=== PATIENT | female | born 1970 | race Caucasian/White ===

== ENCOUNTER 2016-10-16 16:37 | Inpatient (IN) | payer BC ==
[~2016-10-16] VITALS: Ht 172.7 cm; Wt 100.3 kg
[2016-10-16] MEDS ORDERED: ONDANSETRON PF 4 MG/2 ML VIAL. ONE (17:37)
[2016-10-16] MEDS ORDERED: IV NORMAL SALINE 1000ML BAG 1,000 ML IV SCH ×2 (18:00→20:15)
[2016-10-16] MEDS ORDERED: ONDANSETRON PF 4 MG/2 ML VIAL. IV ONE (18:00)
[2016-10-16] MEDS ORDERED: FENTANYL PF 100 MCG/2 ML VIAL. ONE (18:04)
[2016-10-16] MEDS ORDERED: FENTANYL PF 100 MCG/2 ML VIAL. IV ONE (18:15)
[2016-10-16] MEDS ORDERED: FENTANYL PF 100 MCG/2 ML VIAL. IV PRN ×2 (18:30→20:15)
[2016-10-16 18:31] LABS: BASO % 0 % (0-3); EOS % 0 % (0-3); HEMATOCRIT 44.3 % (36.0-47.0); HEMOGLOBIN 15.2 g/dL (12.0-15.5); LYMPH # 1.3 x10^3/uL (1.0-4.8); LYMPH % 10 % (24-48); MEAN CORPUSCULAR HEMOGLOBIN 32 pg (25-35); MEAN CORPUSCULAR HGB CONC 34 g/dL (31-37); MEAN CORPUSCULAR VOLUME 94 fL (79-100); MONO % 3 % (0-9); NEUT % 86 % (31-73); PLATELET COUNT 230 x10^3/uL (140-400); RED BLOOD COUNT 4.73 x10^6/uL (3.50-5.40); WHITE BLOOD COUNT 12.5 x10^3/uL (4.0-11.0)
[2016-10-16] MEDS ORDERED: HYDROMORPHONE 2 MG/ML VIAL. ONE (18:46)
[2016-10-16] MEDS: HYDROMORPHONE 2 MG/ML VIAL. IV/SQ PRN ×2 (18:48→19:40)
[2016-10-16 19:00] LABS: ALBUMIN 4.2 g/dL (3.4-5.0); ALBUMIN/GLOBULIN RATIO 1.2 (1.0-1.7); CALCIUM 9.9 mg/dL (8.5-10.1); CREATININE 1.1 mg/dL (0.6-1.0); TOTAL BILIRUBIN 0.6 mg/dL (0.2-1.0); TOTAL PROTEIN 7.8 g/dL (6.4-8.2)
[2016-10-16] MEDS ORDERED: PROMETHAZINE 12.5 MG in IV NORMAL SALINE 50ML 50 ML IV ONE (19:00)
[2016-10-16 19:03] LABS: NEG OBC UR NEG; POS OBC UR POS
--- NOTE | 2016-10-16 19:33 | RAD ---
PROCEDURE CT of the abdomen and pelvis without contrast HISTORY TECHNIQUE Noncontrast helical CT scanning of the abdomen and pelvis was performed. Without GI contrast, the sensitivity to detect GI tract pathology is decreased. Without IV contrast, the sensitivity to detect organ pathology is decreased. COMPARISON FINDINGS The liver is homogeneous in appearance on this noncontrast study and is normal in size. The spleen is homogeneous appearance on this noncontrast study and is normal in size. The pancreas is homogeneous appearance on this noncontrast study and is not enlarged. The gallbladder has been removed.. No adrenal masses are seen. No renal stones or hydronephrosis or perinephric fluid collections are seen. No hydroureter is seen. No stones are evident within either ureter or within the lumen of the urinary bladder. The urinary bladder wall is smooth. No focal aneurysmal dilatation of the abdominal aorta is seen. No enlarged abdominal or pelvic lymphadenopathy is seen. No free intraperitoneal fluid or free intraperitoneal air is seen. There is dilated proximal small bowel and collapsed mid and distal small bowel. There is a transition zone seen in the mid abdomen in the coronal sequence image number 17. The lung bases are clear. The appendix is normal. There is an IUD in the uterus which appears well positioned. IMPRESSION High-grade mid small bowel obstruction. There is an exact transition zone seen. PQRS Statement: One or more of the following individualized dose reduction techniques were utilized for this study: 1. Automated exposure control. 2. Adjustment of the mA and/or kV according to patient size. 3. Use of iterative reconstruction technique. Electronically signed by: Gerson Gutierrez MD (Oct 16, 2016 19:31:09)
--- NOTE | 2016-10-16 19:52 | PHYS DOC ---
Past Medical History Past Medical History: Other Additional Past Medical Histor: HEMACHROMTIC, VON WILLEBRAND'S DISEASE Past Surgical History: Cholecystectomy, Tonsillectomy Alcohol Use: None Drug Use: None Adult General Chief Complaint Chief Complaint: ABDOMINAL PAIN HPI HPI Patient is a 45 year old female brought to the ED by family members with abdominal pain, nausea and vomiting. The patient states about 1:30 today she had acute onset of epigastric abdominal pain which worsened for a couple of hours and then she began vomiting. The pain feels "crampy" like a spasm and goes through to her back. She's never had pain like this before. She has vomited multiple times, now she is vomiting up yellow stuff. She has not vomited up blood. She has no history of pancreatitis, no history of bowel obstruction. She did have upper and lower endoscopy a few years ago and was told she had a "acidic stomach". PCP Dr. Cam [facility]. Review of Systems Review of Systems Constitutional: Denies fever or chills [] Eyes: Denies change in visual acuity, redness, or eye pain [] HENT: Denies nasal congestion or sore throat [] Respiratory: Denies cough or shortness of breath [] Cardiovascular: Denies chest pain GI: As in history of present illness : She has a Mirena and does have menstrual periods at times Musculoskeletal: Denies back pain or joint pain [] Integument: Denies rash or skin lesions [] Neurologic: Denies headache, focal weakness or sensory changes [] Current Medications Current Medications Current Medications Medications (Trade) Dose Ordered Sig/Sam Start Time Stop Time Status Last Admin Dose Admin Fentanyl Citrate (Fentanyl 2ml Vial) 100 mcg 1X ONCE 10/16/16 18:15 10/16/16 18:16 DC 10/16/16 18:08 100 MCG Fentanyl Citrate 50 mcg 50 mcg PRN Q15MIN PRN 10/16/16 18:30 10/16/16 20:25 DC 10/16/16 18:26 50 MCG Fentanyl Citrate 100 mcg 100 mcg STK-MED ONCE 10/16/16 18:04 10/16/16 18:05 DC Hydromorphone HCl (Dilaudid) 2 mg STK-MED ONCE 10/16/16 18:46 10/16/16 18:47 DC Ondansetron HCl (Zofran) 4 mg 1X ONCE 10/16/16 18:00 10/16/16 18:01 DC 10/16/16 17:46 4 MG Promethazine HCl/ Sodium Chloride (Phenergan/Iv Sodium Chloride 0.9% 50ml) 50.5 ml @ 101 mls/hr 1X ONCE 10/16/16 19:00 10/16/16 19:29 DC 10/16/16 18:39 101 MLS/HR Sodium Chloride (Iv Sodium Chloride 0.9% 1000ml Bag) 1,000 ml @ 1,000 mls/hr Q1H 10/16/16 18:00 10/16/16 18:59 DC 10/16/16 18:08 1,000 MLS/HR Allergies Allergies Allergies Coded Allergies Type Severity Reaction Last Updated Verified No Known Drug Allergies 10/16/16 No Physical Exam Physical Exam Constitutional: Well developed, well nourished, appears very uncomfortable, holding her upper abdomen, having frequent retching and emesis of yellow stomach contents HENT: Normocephalic, atraumatic, bilateral external ears normal, oropharynx moist, no oral exudates, nose normal. [] Eyes: conjunctiva normal, no discharge. [] Neck: Normal range of motion, no tenderness, supple, no stridor. [] Cardiovascular:Heart rate regular rhythm, no murmur [] Lungs & Thorax: Bilateral breath sounds clear to auscultation [] Abdomen: Nondistended. Bowel sounds are quiet to absent. No bruit. No mass. No pulsatile mass. Lower abdomen is nontender to palpation. Epigastric is tender to palpation without rebound or guarding. Skin: Warm, dry, no erythema, no rash. [] Extremities: No tenderness, no cyanosis, no clubbing, ROM intact, no edema. [] Neurologic: Alert and oriented X 3, normal motor function, normal sensory function, no focal deficits noted. [] Current Patient Data Vital Signs Vital Signs Date Time Temp Pulse Resp B/P Pulse Ox O2 Delivery O2 Flow Rate FiO2 10/16/16 19:40 16 10/16/16 18:48 98 10/16/16 18:28 72 150/68 Room Air 10/16/16 17:09 97.7 97.7 Lab Values Laboratory Tests Test 10/16/16 17:00 10/16/16 17:15 Urine Test Negative (NEG) White Blood Count 12.5x10^3/uL (4.0-11.0) H Red Blood Count 4.73x10^6/uL (3.50-5.40) Hemoglobin 15.2g/dL (12.0-15.5) Hematocrit 44.3% (36.0-47.0) Mean Corpuscular Volume 94fL (79-100) Mean Corpuscular Hemoglobin 32pg (25-35) Mean Corpuscular Hemoglobin Concent 34g/dL (31-37) Red Cell Distribution Width 13.0% (11.5-14.5) Platelet Count 230x10^3/uL (140-400) Neutrophils (%) (Auto) 86% (31-73) H Lymphocytes (%) (Auto) 10% (24-48) L Monocytes (%) (Auto) 3% (0-9) Eosinophils (%) (Auto) 0% (0-3) Basophils (%) (Auto) 0% (0-3) Neutrophils # (Auto) 10.7x10^3uL (1.8-7.7) H Lymphocytes # (Auto) 1.3x10^3/uL (1.0-4.8) Monocytes # (Auto) 0.4x10^3/uL (0.0-1.1) Eosinophils # (Auto) 0.0x10^3/uL (0.0-0.7) Basophils # (Auto) 0.0x10^3/uL (0.0-0.2) Segmented Neutrophils % 84% (35-66) H Lymphocytes % 14% (24-48) L Monocytes % 2% (0-10) Platelet Estimate Adequate (ADEQUATE) Sodium Level 143mmol/L (136-145) Potassium Level 3.0mmol/L (3.5-5.1) L Chloride Level 102mmol/L (98-107) Carbon Dioxide Level 30mmol/L (21-32) Anion Gap 11 (6-14) Blood Urea Nitrogen 16mg/dL (7-20) Creatinine 1.1mg/dL (0.6-1.0) H Estimated GFR (Cockcroft-Gault) 54.0 BUN/Creatinine Ratio 15 (6-20) Glucose Level 112mg/dL (70-99) H Calcium Level 9.9mg/dL (8.5-10.1) Total Bilirubin 0.6mg/dL (0.2-1.0) Aspartate Amino Transferase (AST) 28U/L (15-37) Alanine Aminotransferase (ALT) 36U/L (14-59) Alkaline Phosphatase 91U/L (46-116) Total Protein 7.8g/dL (6.4-8.2) Albumin 4.2g/dL (3.4-5.0) Albumin/Globulin Ratio 1.2 (1.0-1.7) Lipase 159U/L (73-393) Laboratory Tests 10/16/16 17:15 Laboratory Tests 10/16/16 17:15 EKG EKG [] Radiology/Procedures Radiology/Procedures CT scan of the abdomen and pelvis read by the radiologist is positive for a high -grade mid small bowel obstruction with a transition zone seen. [] Course & Med Decision Making Course & Med Decision Making Pertinent Labs and Imaging studies reviewed. (See chart for details) 45-year-old female with acute onset of epigastric abdominal pain and vomiting. Labs unrevealing for cause, CT scan does show a mid small bowel obstruction. The patient has had a cholecystectomy in the past but no other abdominal surgery. It's unclear why she would have a small bowel obstruction. Despite several doses of IV pain and nausea medication the patient continued to have quite a bit of abdominal pain and frequent retching of small amounts of yellow stomach contents. I discussed with her placement of an NG tube for treatment as well as symptomatic relief. I discussed the case with Dr. Sidhu, [facility], who will admit the patient. I wrote bridge orders. Discussed the case with , general surgery, who will see the patient. [] Dragon Disclaimer Dragon Disclaimer This electronic medical record was generated, in whole or in part, using a voice recognition dictation system. Departure Departure Impression: Primary Impression: Small bowel obstruction Disposition: 09 ADMITTED INPATIENT Admitting Physician: Perri Sidhu Condition: STABLE Referrals: KAY VICTORIA (PCP) KOKI ARIZMENDI MD Oct 16, 2016 19:52
[2016-10-16] MEDS ORDERED: BENZOCAINE ONE 20% MUCOSAL SPRAY. MM (20:00)
[2016-10-16] MEDS ORDERED: PROMETHAZINE 12.5 MG in IV NORMAL SALINE 50ML 50 ML IV PRN (20:15)
[2016-10-16] MEDS ORDERED: ACETAMINOPHEN 325 MG TABLET. PO PRN (20:15)
--- NOTE | 2016-10-16 20:22 | PDOC1 ---
History and Physical Date of Admission Date of Admission 10/16/16 Identification/Chief Complaint Chief Complaint abd pain Problems: Source Source: Chart review, Patient History of Present Illness History of Present Illness HPI HPI Patient is a 45 year old female brought to the ED by family members with abdominal pain, nausea and vomiting. Pt has had similar abd pain before, not as severe as this one. She started to have severe upper abd pain today, about 1pm, constent, with N/V, the pain feels like crampy, radiating to the back. T now she is vomiting up yellow stuff, not blood. never had SBO. She did have upper and lower endoscopy a few years ago and was told she had a "acidic stomach". Has IBS, Usually has constipation. last BM was last night. no flatus since the abd pain. no fever, + chills. no cough, sob. CT SHOWED HIGH LEVEL SBO. HAD CHOlecystectomy before. PCP Dr. Cam [facility]. Past Medical History Past Medical History ibs Past Surgical History Past Surgical History: Cholecystectomy Social History Smoke: No ALCOHOL: social Drugs: None Current Problem List Problem List Problems Medical Problems: (1) Small bowel obstruction Status: Acute Current Medications Current Medications Current Medications Medications (Trade) Dose Ordered Sig/Sam Start Time Stop Time Status Last Admin Dose Admin Acetaminophen (Tylenol) 650 mg PRN Q6HRS PRN 10/16/16 20:15 UNV Benzocaine (Hurricaine One) 1 spray 1X ONCE 10/16/16 20:00 10/16/16 20:01 DC 10/16/16 20:11 1 SPRAY Fentanyl Citrate (Fentanyl 2ml Vial) 100 mcg STK-MED ONCE 10/16/16 18:04 10/16/16 18:05 DC Fentanyl Citrate 50 mcg 50 mcg PRN Q1HR PRN 10/16/16 20:15 10/17/16 20:14 UNV Heparin Sodium (Porcine) 5,000 unit Q8HRS 10/16/16 22:00 UNV Hydromorphone HCl (Dilaudid) 2 mg STK-MED ONCE 10/16/16 18:46 10/16/16 18:47 DC Morphine Sulfate 2 mg PRN Q1HR PRN 10/16/16 20:15 UNV Ondansetron HCl (Zofran) 4 mg PRN Q6HRS PRN 10/16/16 20:15 UNV Ondansetron HCl 4 mg 4 mg 1X ONCE 10/16/16 18:00 10/16/16 18:01 DC 10/16/16 17:46 4 MG Promethazine HCl/ Sodium Chloride (Phenergan/Iv Sodium Chloride 0.9% 50ml) 50.5 ml @ 151.5 mls/ hr PRN Q6HRS PRN 10/16/16 20:15 UNV Sodium Chloride 1,000 ml @ 100 mls/hr Q10H 10/16/16 20:15 10/17/16 20:14 UNV Sodium Chloride (Iv Sodium Chloride 0.9% 1000ml Bag) 1,000 ml @ 1,000 mls/hr Q1H 10/16/16 18:00 10/16/16 18:59 DC 10/16/16 18:08 1,000 MLS/HR Allergies Allergies Allergies Coded Allergies Type Severity Reaction Last Updated Verified No Known Drug Allergies 10/16/16 No ROS Review of System CONSTITUTIONAL: No fever or chills EYES: No recent changes SKIN: No rash or itching CARDIOVASCULAR: No chest pain, syncope, palpitations, or edema RESPIRATORY: No SOB or cough GASTROINTESTINAL: No nausea, vomiting or abdominal pain NEUROLOGICAL: No headaches or weakness ENDOCRINE: No cold or heat intolerance GENITOURINARY: No urgency or frequency of urination MUSCULOSKELETAL: No back pain or joint pain LYMPHATICS: No enlarged lymph nodes PSYCHIATRIC: No anxiety or depression Physical Exam Physical Exam GEN.: No apparent distress. Alert and oriented. HEENT: Head is normocephalic, atraumatic NECK: Supple. LUNGS: Clear to auscultation. HEART: RRR, S1, S2 present. Peripheral pulses intact ABDOMEN: Soft,decreased bowel sounds. whole abd tender, especially epigastric area. EXTREMITIES: Without any cyanosis. left ankle chronic mild edema NEUROLOGIC: Normal speech, normal tone PSYCHIATRIC: Normal affect, normal mood. SKIN: No ulcerations Vitals Vitals Vital Signs Date Time Temp Pulse Resp B/P Pulse Ox O2 Delivery O2 Flow Rate FiO2 10/16/16 19:40 16 10/16/16 18:48 98 10/16/16 18:28 72 150/68 Room Air 10/16/16 17:09 97.7 97.7 Labs Labs Laboratory Tests Test 10/16/16 17:00 10/16/16 17:15 Urine Test Negative (NEG) White Blood Count 12.5x10^3/uL (4.0-11.0) Red Blood Count 4.73x10^6/uL (3.50-5.40) Hemoglobin 15.2g/dL (12.0-15.5) Hematocrit 44.3% (36.0-47.0) Mean Corpuscular Volume 94fL (79-100) Mean Corpuscular Hemoglobin 32pg (25-35) Mean Corpuscular Hemoglobin Concent 34g/dL (31-37) Red Cell Distribution Width 13.0% (11.5-14.5) Platelet Count 230x10^3/uL (140-400) Neutrophils (%) (Auto) 86% (31-73) Lymphocytes (%) (Auto) 10% (24-48) Monocytes (%) (Auto) 3% (0-9) Eosinophils (%) (Auto) 0% (0-3) Basophils (%) (Auto) 0% (0-3) Neutrophils # (Auto) 10.7x10^3uL (1.8-7.7) Lymphocytes # (Auto) 1.3x10^3/uL (1.0-4.8) Monocytes # (Auto) 0.4x10^3/uL (0.0-1.1) Eosinophils # (Auto) 0.0x10^3/uL (0.0-0.7) Basophils # (Auto) 0.0x10^3/uL (0.0-0.2) Sodium Level 143mmol/L (136-145) Potassium Level 3.0mmol/L (3.5-5.1) Chloride Level 102mmol/L (98-107) Carbon Dioxide Level 30mmol/L (21-32) Anion Gap 11 (6-14) Blood Urea Nitrogen 16mg/dL (7-20) Creatinine 1.1mg/dL (0.6-1.0) Estimated GFR (Cockcroft-Gault) 54.0 BUN/Creatinine Ratio 15 (6-20) Glucose Level 112mg/dL (70-99) Calcium Level 9.9mg/dL (8.5-10.1) Total Bilirubin 0.6mg/dL (0.2-1.0) Aspartate Amino Transf (AST/SGOT) 28U/L (15-37) Alanine Aminotransferase (ALT/SGPT) 36U/L (14-59) Alkaline Phosphatase 91U/L (46-116) Total Protein 7.8g/dL (6.4-8.2) Albumin 4.2g/dL (3.4-5.0) Albumin/Globulin Ratio 1.2 (1.0-1.7) Lipase 159U/L (73-393) Laboratory Tests Test 10/16/16 17:00 10/16/16 17:15 Urine Test Negative (NEG) White Blood Count 12.5x10^3/uL (4.0-11.0) Red Blood Count 4.73x10^6/uL (3.50-5.40) Hemoglobin 15.2g/dL (12.0-15.5) Hematocrit 44.3% (36.0-47.0) Mean Corpuscular Volume 94fL (79-100) Mean Corpuscular Hemoglobin 32pg (25-35) Mean Corpuscular Hemoglobin Concent 34g/dL (31-37) Red Cell Distribution Width 13.0% (11.5-14.5) Platelet Count 230x10^3/uL (140-400) Neutrophils (%) (Auto) 86% (31-73) Lymphocytes (%) (Auto) 10% (24-48) Monocytes (%) (Auto) 3% (0-9) Eosinophils (%) (Auto) 0% (0-3) Basophils (%) (Auto) 0% (0-3) Neutrophils # (Auto) 10.7x10^3uL (1.8-7.7) Lymphocytes # (Auto) 1.3x10^3/uL (1.0-4.8) Monocytes # (Auto) 0.4x10^3/uL (0.0-1.1) Eosinophils # (Auto) 0.0x10^3/uL (0.0-0.7) Basophils # (Auto) 0.0x10^3/uL (0.0-0.2) Sodium Level 143mmol/L (136-145) Potassium Level 3.0mmol/L (3.5-5.1) Chloride Level 102mmol/L (98-107) Carbon Dioxide Level 30mmol/L (21-32) Anion Gap 11 (6-14) Blood Urea Nitrogen 16mg/dL (7-20) Creatinine 1.1mg/dL (0.6-1.0) Estimated GFR (Cockcroft-Gault) 54.0 BUN/Creatinine Ratio 15 (6-20) Glucose Level 112mg/dL (70-99) Calcium Level 9.9mg/dL (8.5-10.1) Total Bilirubin 0.6mg/dL (0.2-1.0) Aspartate Amino Transf (AST/SGOT) 28U/L (15-37) Alanine Aminotransferase (ALT/SGPT) 36U/L (14-59) Alkaline Phosphatase 91U/L (46-116) Total Protein 7.8g/dL (6.4-8.2) Albumin 4.2g/dL (3.4-5.0) Albumin/Globulin Ratio 1.2 (1.0-1.7) Lipase 159U/L (73-393) VTE Prophylaxis Ordered VTE Prophylaxis Devices: Yes VTE Pharmacological Prophylaxi: Yes Assessment/Plan Assessment/Plan 1. abd pain with SBO 2. h/o von willebrands dz 3. left ankle chronic mild edema 4. hypokalemia 5. SIRS WO INfection plan: 1 sx consult, NGT now 2. axr tmr 3. npo ivf replete K labs tmr dvt ,gi ppx JERRY MORFIN MD Oct 16, 2016 20:22
--- NOTE | 2016-10-16 20:28 | ACF ---
Admit Criteria Forms Admit Criteria Forms Admit Criteria Forms INTESTINAL OBSTRUCTION Clinical Indications for Admission to Inpatient Care (Place 'X' for any and all applicable criteria): Admission is indicated for ANY ONE of the following (1)(2)(3)(4)(5): [ ]I. Partial bowel obstruction [X]II. Complete bowel obstruction Extended stay beyond goal length of stay may be needed for(1)(4)(12(: [ ]a) Identified etiology (eg, hernia, volvulus, cancer with obstruction) requiring intervention [ ]b) Gallstone ileus [ ]c) Surgical intervention [ ]d) Acute comorbid illness (eg, electrolyte imbalance, hypovolemia, renal failure) The original [employer] content created by [employer] has been revised. The portions of the content which have been revised are identified through the use of italic text or in bold, and [facility] has neither reviewed nor approved the modified material. All other unmodified content is copyright [employer]. Please see references footnoted in the original [employer] edition 2016 CITLALI BLAKE Oct 16, 2016 20:28
[2016-10-16 20:31] LABS: PLT ESTIMATE ADEQUATE (ADEQUATE)
[2016-10-16] MEDS: HYDROMORPHONE 2 MG/ML VIAL. IV PRN (21:14)
[2016-10-16 22:00] VITALS: BP 125/76
[2016-10-16] MEDS: PANTOPRAZOLE IV PUSH 40 MG VIAL. IVP SCH (22:57)
[2016-10-16] MEDS: POTASSIUM CHLORIDE 10MEQ 100 ML IV SCH (23:01)
[2016-10-16] MEDS: POTASSIUM CL 20MEQ D5-0.9%NACL 1,000 ML IV SCH (23:01)
[2016-10-16] MEDS: HEPARIN PF for SUB-Q USE 5,000 UNIT/0.5 ML VIAL. SQ SCH (23:05)
[2016-10-16] MEDS: MORPHINE SULFATE 2 MG/ML DISP.SYRIN. IV PRN (23:12)
[2016-10-16] MEDS: ONDANSETRON PF 4 MG/2 ML VIAL. IV PRN (23:57)
[2016-10-17] MEDS: HYDROMORPHONE 2 MG/ML VIAL. IV PRN ×4 (01:14→16:57)
[2016-10-17] MEDS: POTASSIUM CHLORIDE 10MEQ 100 ML IV SCH ×5 (01:17→13:45)
[2016-10-17 03:59] VITALS: BP 130/80
[2016-10-17] MEDS: MORPHINE SULFATE 2 MG/ML DISP.SYRIN. IV PRN ×3 (05:22→21:07)
[2016-10-17] MEDS: HEPARIN PF for SUB-Q USE 5,000 UNIT/0.5 ML VIAL. SQ SCH (05:58)
[2016-10-17 07:00] VITALS: BP 134/84
--- NOTE | 2016-10-17 07:22 | PDOC ---
SURGICAL PROGRESS NOTE Subjective 45 yo F with epigastric pain abd mild TTP epigastric CT c/w SBO KUB-mild dialation in epigastric pt currently feels somewhat better I/R SBO will try SBFT d/w pt and pt's fiance Thanks for consult! [id number] Vital Signs Vital Signs Date Time Temp Pulse Resp B/P Pulse Ox O2 Delivery O2 Flow Rate FiO2 10/17/16 05:52 20 Room Air 10/17/16 05:22 92 10/17/16 03:59 97.4 65 130/80 97.4 I&O Intake and Output 10/17/16 07:00 Intake Total 0 ml Balance 0 ml Intake Oral 0 ml # Voids 1 Labs Laboratory Tests Test 10/16/16 17:00 10/16/16 17:15 Urine Test Negative (NEG) White Blood Count 12.5x10^3/uL (4.0-11.0) Red Blood Count 4.73x10^6/uL (3.50-5.40) Hemoglobin 15.2g/dL (12.0-15.5) Hematocrit 44.3% (36.0-47.0) Mean Corpuscular Volume 94fL (79-100) Mean Corpuscular Hemoglobin 32pg (25-35) Mean Corpuscular Hemoglobin Concent 34g/dL (31-37) Red Cell Distribution Width 13.0% (11.5-14.5) Platelet Count 230x10^3/uL (140-400) Neutrophils (%) (Auto) 86% (31-73) Lymphocytes (%) (Auto) 10% (24-48) Monocytes (%) (Auto) 3% (0-9) Eosinophils (%) (Auto) 0% (0-3) Basophils (%) (Auto) 0% (0-3) Neutrophils # (Auto) 10.7x10^3uL (1.8-7.7) Lymphocytes # (Auto) 1.3x10^3/uL (1.0-4.8) Monocytes # (Auto) 0.4x10^3/uL (0.0-1.1) Eosinophils # (Auto) 0.0x10^3/uL (0.0-0.7) Basophils # (Auto) 0.0x10^3/uL (0.0-0.2) Segmented Neutrophils % 84% (35-66) Lymphocytes % 14% (24-48) Monocytes % 2% (0-10) Platelet Estimate Adequate (ADEQUATE) Sodium Level 143mmol/L (136-145) Potassium Level 3.0mmol/L (3.5-5.1) Chloride Level 102mmol/L (98-107) Carbon Dioxide Level 30mmol/L (21-32) Anion Gap 11 (6-14) Blood Urea Nitrogen 16mg/dL (7-20) Creatinine 1.1mg/dL (0.6-1.0) Estimated GFR (Cockcroft-Gault) 54.0 BUN/Creatinine Ratio 15 (6-20) Glucose Level 112mg/dL (70-99) Calcium Level 9.9mg/dL (8.5-10.1) Total Bilirubin 0.6mg/dL (0.2-1.0) Aspartate Amino Transf (AST/SGOT) 28U/L (15-37) Alanine Aminotransferase (ALT/SGPT) 36U/L (14-59) Alkaline Phosphatase 91U/L (46-116) Total Protein 7.8g/dL (6.4-8.2) Albumin 4.2g/dL (3.4-5.0) Albumin/Globulin Ratio 1.2 (1.0-1.7) Lipase 159U/L (73-393) Laboratory Tests Test 10/16/16 17:00 10/16/16 17:15 Urine Test Negative (NEG) White Blood Count 12.5x10^3/uL (4.0-11.0) Red Blood Count 4.73x10^6/uL (3.50-5.40) Hemoglobin 15.2g/dL (12.0-15.5) Hematocrit 44.3% (36.0-47.0) Mean Corpuscular Volume 94fL (79-100) Mean Corpuscular Hemoglobin 32pg (25-35) Mean Corpuscular Hemoglobin Concent 34g/dL (31-37) Red Cell Distribution Width 13.0% (11.5-14.5) Platelet Count 230x10^3/uL (140-400) Neutrophils (%) (Auto) 86% (31-73) Lymphocytes (%) (Auto) 10% (24-48) Monocytes (%) (Auto) 3% (0-9) Eosinophils (%) (Auto) 0% (0-3) Basophils (%) (Auto) 0% (0-3) Neutrophils # (Auto) 10.7x10^3uL (1.8-7.7) Lymphocytes # (Auto) 1.3x10^3/uL (1.0-4.8) Monocytes # (Auto) 0.4x10^3/uL (0.0-1.1) Eosinophils # (Auto) 0.0x10^3/uL (0.0-0.7) Basophils # (Auto) 0.0x10^3/uL (0.0-0.2) Segmented Neutrophils % 84% (35-66) Lymphocytes % 14% (24-48) Monocytes % 2% (0-10) Platelet Estimate Adequate (ADEQUATE) Sodium Level 143mmol/L (136-145) Potassium Level 3.0mmol/L (3.5-5.1) Chloride Level 102mmol/L (98-107) Carbon Dioxide Level 30mmol/L (21-32) Anion Gap 11 (6-14) Blood Urea Nitrogen 16mg/dL (7-20) Creatinine 1.1mg/dL (0.6-1.0) Estimated GFR (Cockcroft-Gault) 54.0 BUN/Creatinine Ratio 15 (6-20) Glucose Level 112mg/dL (70-99) Calcium Level 9.9mg/dL (8.5-10.1) Total Bilirubin 0.6mg/dL (0.2-1.0) Aspartate Amino Transf (AST/SGOT) 28U/L (15-37) Alanine Aminotransferase (ALT/SGPT) 36U/L (14-59) Alkaline Phosphatase 91U/L (46-116) Total Protein 7.8g/dL (6.4-8.2) Albumin 4.2g/dL (3.4-5.0) Albumin/Globulin Ratio 1.2 (1.0-1.7) Lipase 159U/L (73-393) Problem List Problems Medical Problems: (1) Small bowel obstruction Status: Acute Problems: MERON HWANG MD Oct 17, 2016 07:22
[2016-10-17] MEDS: PANTOPRAZOLE IV PUSH 40 MG VIAL. IVP SCH (09:00)
[2016-10-17] MEDS: POTASSIUM CL 20MEQ D5-0.9%NACL 1,000 ML IV SCH ×2 (09:01→21:07)
[2016-10-17 09:37] LABS: BASO # 0.1 x10^3/uL (0.0-0.2); BASO % 1 % (0-3); EOS % 0 % (0-3); HEMATOCRIT 41.5 % (36.0-47.0); HEMOGLOBIN 14.2 g/dL (12.0-15.5); LYMPH # 0.9 x10^3/uL (1.0-4.8); LYMPH % 7 % (24-48); MEAN CORPUSCULAR HEMOGLOBIN 32 pg (25-35); MEAN CORPUSCULAR HGB CONC 34 g/dL (31-37); MEAN CORPUSCULAR VOLUME 93 fL (79-100); MONO % 2 % (0-9); NEUT % 91 % (31-73); PLATELET COUNT 226 x10^3/uL (140-400); RED BLOOD COUNT 4.48 x10^6/uL (3.50-5.40); WHITE BLOOD COUNT 13.2 x10^3/uL (4.0-11.0)
[2016-10-17 09:47] LABS: CALCIUM 8.9 mg/dL (8.5-10.1); CREATININE 0.9 mg/dL (0.6-1.0); POTASSIUM 3.2 mmol/L (3.5-5.1)
[2016-10-17] MEDS ORDERED: IOHEXOL 350 MG/ML 100ML VIAL. PO ONE (10:30)
[2016-10-17] MEDS ORDERED: POTASSIUM CHLORIDE 20MEQ 50 ML IV ONE (10:45)
--- NOTE | 2016-10-17 11:29 | RAD ---
EXAM: Two view abdomen with one view chest HISTORY: Small bowel obstruction. COMPARISON: None. FINDINGS: A frontal view of the chest and supine/upright views of the abdomen are obtained. A nasogastric tube has its tip within the distal stomach. Cholecystectomy clips are noted. An intrauterine device is noted. There are no confluent infiltrates. There is no pneumothorax or pleural effusion. The heart is not enlarged. There is no pneumoperitoneum. There are no distended small bowel loops or significant air-fluid levels. There is gas distally. There is a mild S-shaped thoracolumbar scoliosis. IMPRESSION: 1. No confluent infiltrates. 2. No evidence of obstruction.
[2016-10-17] MEDS: ONDANSETRON PF 4 MG/2 ML VIAL. IV PRN (11:39)
--- NOTE | 2016-10-17 12:00 | RAD ---
EXAM: Water-soluble small bowel follow-through. HISTORY: Small bowel obstruction. COMPARISON: 10/17/2016. FINDINGS: Water-soluble contrast was administered through the nasogastric tube and followed in its course through the small bowel and proximal colon with plain radiographs. No fluoroscopic images were obtained. Transit time is normal at less than sign 30 minutes. There are no clearly distended small bowel loops or transition point currently. An intrauterine device is noted. IMPRESSION: 1. No obstruction currently.
--- NOTE | 2016-10-17 13:43 | PDOC ---
PROGRESS NOTES Chief Complaint Chief Complaint 1. abd pain with SBO 2. h/o von willebrands dz 3. left ankle chronic mild edema 4. hypokalemia 5. SIRS WO INfection plan: 1 sx consult, NGT now 2. axr and small bowl series done today, no sbo 3. npo for now given no flatus, and abd pain ivf replete K labs tmr dvt ,gi ppx dc heparin for dvt ppx given 2 History of Present Illness History of Present Illness about 200cc green liquid from NGT, no flatus, or BM pain better with many times of opoids Vitals Vitals Vital Signs Date Time Temp Pulse Resp B/P Pulse Ox O2 Delivery O2 Flow Rate FiO2 10/17/16 12:16 Room Air 10/17/16 07:00 97.8 83 18 134/84 97 97.8 Physical Exam General: Alert, Oriented X3, Cooperative Heart: Regular rate, Normal S1, Normal S2 Lungs: Clear, Wheezing Abdomen: Soft, Other (decreased bs, + tenderness) Extremities: No clubbing, No cyanosis Labs LABS Laboratory Tests Test 10/16/16 17:00 10/16/16 17:15 10/17/16 09:25 Urine Test Negative (NEG) White Blood Count 12.5x10^3/uL (4.0-11.0) 13.2x10^3/uL (4.0-11.0) Red Blood Count 4.73x10^6/uL (3.50-5.40) 4.48x10^6/uL (3.50-5.40) Hemoglobin 15.2g/dL (12.0-15.5) 14.2g/dL (12.0-15.5) Hematocrit 44.3% (36.0-47.0) 41.5% (36.0-47.0) Mean Corpuscular Volume 94fL (79-100) 93fL (79-100) Mean Corpuscular Hemoglobin 32pg (25-35) 32pg (25-35) Mean Corpuscular Hemoglobin Concent 34g/dL (31-37) 34g/dL (31-37) Red Cell Distribution Width 13.0% (11.5-14.5) 13.0% (11.5-14.5) Platelet Count 230x10^3/uL (140-400) 226x10^3/uL (140-400) Neutrophils (%) (Auto) 86% (31-73) 91% (31-73) Lymphocytes (%) (Auto) 10% (24-48) 7% (24-48) Monocytes (%) (Auto) 3% (0-9) 2% (0-9) Eosinophils (%) (Auto) 0% (0-3) 0% (0-3) Basophils (%) (Auto) 0% (0-3) 1% (0-3) Neutrophils # (Auto) 10.7x10^3uL (1.8-7.7) 12.0x10^3uL (1.8-7.7) Lymphocytes # (Auto) 1.3x10^3/uL (1.0-4.8) 0.9x10^3/uL (1.0-4.8) Monocytes # (Auto) 0.4x10^3/uL (0.0-1.1) 0.3x10^3/uL (0.0-1.1) Eosinophils # (Auto) 0.0x10^3/uL (0.0-0.7) 0.0x10^3/uL (0.0-0.7) Basophils # (Auto) 0.0x10^3/uL (0.0-0.2) 0.1x10^3/uL (0.0-0.2) Segmented Neutrophils % 84% (35-66) Lymphocytes % 14% (24-48) Monocytes % 2% (0-10) Platelet Estimate Adequate (ADEQUATE) Sodium Level 143mmol/L (136-145) 142mmol/L (136-145) Potassium Level 3.0mmol/L (3.5-5.1) 3.2mmol/L (3.5-5.1) Chloride Level 102mmol/L (98-107) 102mmol/L (98-107) Carbon Dioxide Level 30mmol/L (21-32) 30mmol/L (21-32) Anion Gap 11 (6-14) 10 (6-14) Blood Urea Nitrogen 16mg/dL (7-20) 14mg/dL (7-20) Creatinine 1.1mg/dL (0.6-1.0) 0.9mg/dL (0.6-1.0) Estimated GFR (Cockcroft-Gault) 54.0 68.0 BUN/Creatinine Ratio 15 (6-20) Glucose Level 112mg/dL (70-99) 116mg/dL (70-99) Calcium Level 9.9mg/dL (8.5-10.1) 8.9mg/dL (8.5-10.1) Total Bilirubin 0.6mg/dL (0.2-1.0) Aspartate Amino Transf (AST/SGOT) 28U/L (15-37) Alanine Aminotransferase (ALT/SGPT) 36U/L (14-59) Alkaline Phosphatase 91U/L (46-116) Total Protein 7.8g/dL (6.4-8.2) Albumin 4.2g/dL (3.4-5.0) Albumin/Globulin Ratio 1.2 (1.0-1.7) Lipase 159U/L (73-393) Magnesium Level 2.0mg/dL (1.8-2.4) Review of Systems Review of Systems no fever, chills, sob or chest pain Assessment and Plan Assessmemt and Plan Problems Medical Problems: (1) Small bowel obstruction Status: Acute Problems: Comment Review of Relevant I have reviewed the following items chris (where applicable) has been applied. Labs Laboratory Tests Test 10/16/16 17:00 10/16/16 17:15 10/17/16 09:25 Urine Test Negative (NEG) White Blood Count 12.5x10^3/uL (4.0-11.0) 13.2x10^3/uL (4.0-11.0) Red Blood Count 4.73x10^6/uL (3.50-5.40) 4.48x10^6/uL (3.50-5.40) Hemoglobin 15.2g/dL (12.0-15.5) 14.2g/dL (12.0-15.5) Hematocrit 44.3% (36.0-47.0) 41.5% (36.0-47.0) Mean Corpuscular Volume 94fL (79-100) 93fL (79-100) Mean Corpuscular Hemoglobin 32pg (25-35) 32pg (25-35) Mean Corpuscular Hemoglobin Concent 34g/dL (31-37) 34g/dL (31-37) Red Cell Distribution Width 13.0% (11.5-14.5) 13.0% (11.5-14.5) Platelet Count 230x10^3/uL (140-400) 226x10^3/uL (140-400) Neutrophils (%) (Auto) 86% (31-73) 91% (31-73) Lymphocytes (%) (Auto) 10% (24-48) 7% (24-48) Monocytes (%) (Auto) 3% (0-9) 2% (0-9) Eosinophils (%) (Auto) 0% (0-3) 0% (0-3) Basophils (%) (Auto) 0% (0-3) 1% (0-3) Neutrophils # (Auto) 10.7x10^3uL (1.8-7.7) 12.0x10^3uL (1.8-7.7) Lymphocytes # (Auto) 1.3x10^3/uL (1.0-4.8) 0.9x10^3/uL (1.0-4.8) Monocytes # (Auto) 0.4x10^3/uL (0.0-1.1) 0.3x10^3/uL (0.0-1.1) Eosinophils # (Auto) 0.0x10^3/uL (0.0-0.7) 0.0x10^3/uL (0.0-0.7) Basophils # (Auto) 0.0x10^3/uL (0.0-0.2) 0.1x10^3/uL (0.0-0.2) Segmented Neutrophils % 84% (35-66) Lymphocytes % 14% (24-48) Monocytes % 2% (0-10) Platelet Estimate Adequate (ADEQUATE) Sodium Level 143mmol/L (136-145) 142mmol/L (136-145) Potassium Level 3.0mmol/L (3.5-5.1) 3.2mmol/L (3.5-5.1) Chloride Level 102mmol/L (98-107) 102mmol/L (98-107) Carbon Dioxide Level 30mmol/L (21-32) 30mmol/L (21-32) Anion Gap 11 (6-14) 10 (6-14) Blood Urea Nitrogen 16mg/dL (7-20) 14mg/dL (7-20) Creatinine 1.1mg/dL (0.6-1.0) 0.9mg/dL (0.6-1.0) Estimated GFR (Cockcroft-Gault) 54.0 68.0 BUN/Creatinine Ratio 15 (6-20) Glucose Level 112mg/dL (70-99) 116mg/dL (70-99) Calcium Level 9.9mg/dL (8.5-10.1) 8.9mg/dL (8.5-10.1) Total Bilirubin 0.6mg/dL (0.2-1.0) Aspartate Amino Transf (AST/SGOT) 28U/L (15-37) Alanine Aminotransferase (ALT/SGPT) 36U/L (14-59) Alkaline Phosphatase 91U/L (46-116) Total Protein 7.8g/dL (6.4-8.2) Albumin 4.2g/dL (3.4-5.0) Albumin/Globulin Ratio 1.2 (1.0-1.7) Lipase 159U/L (73-393) Magnesium Level 2.0mg/dL (1.8-2.4) Laboratory Tests Test 10/16/16 17:00 10/16/16 17:15 10/17/16 09:25 Urine Test Negative (NEG) White Blood Count 12.5x10^3/uL (4.0-11.0) 13.2x10^3/uL (4.0-11.0) Red Blood Count 4.73x10^6/uL (3.50-5.40) 4.48x10^6/uL (3.50-5.40) Hemoglobin 15.2g/dL (12.0-15.5) 14.2g/dL (12.0-15.5) Hematocrit 44.3% (36.0-47.0) 41.5% (36.0-47.0) Mean Corpuscular Volume 94fL (79-100) 93fL (79-100) Mean Corpuscular Hemoglobin 32pg (25-35) 32pg (25-35) Mean Corpuscular Hemoglobin Concent 34g/dL (31-37) 34g/dL (31-37) Red Cell Distribution Width 13.0% (11.5-14.5) 13.0% (11.5-14.5) Platelet Count 230x10^3/uL (140-400) 226x10^3/uL (140-400) Neutrophils (%) (Auto) 86% (31-73) 91% (31-73) Lymphocytes (%) (Auto) 10% (24-48) 7% (24-48) Monocytes (%) (Auto) 3% (0-9) 2% (0-9) Eosinophils (%) (Auto) 0% (0-3) 0% (0-3) Basophils (%) (Auto) 0% (0-3) 1% (0-3) Neutrophils # (Auto) 10.7x10^3uL (1.8-7.7) 12.0x10^3uL (1.8-7.7) Lymphocytes # (Auto) 1.3x10^3/uL (1.0-4.8) 0.9x10^3/uL (1.0-4.8) Monocytes # (Auto) 0.4x10^3/uL (0.0-1.1) 0.3x10^3/uL (0.0-1.1) Eosinophils # (Auto) 0.0x10^3/uL (0.0-0.7) 0.0x10^3/uL (0.0-0.7) Basophils # (Auto) 0.0x10^3/uL (0.0-0.2) 0.1x10^3/uL (0.0-0.2) Segmented Neutrophils % 84% (35-66) Lymphocytes % 14% (24-48) Monocytes % 2% (0-10) Platelet Estimate Adequate (ADEQUATE) Sodium Level 143mmol/L (136-145) 142mmol/L (136-145) Potassium Level 3.0mmol/L (3.5-5.1) 3.2mmol/L (3.5-5.1) Chloride Level 102mmol/L (98-107) 102mmol/L (98-107) Carbon Dioxide Level 30mmol/L (21-32) 30mmol/L (21-32) Anion Gap 11 (6-14) 10 (6-14) Blood Urea Nitrogen 16mg/dL (7-20) 14mg/dL (7-20) Creatinine 1.1mg/dL (0.6-1.0) 0.9mg/dL (0.6-1.0) Estimated GFR (Cockcroft-Gault) 54.0 68.0 BUN/Creatinine Ratio 15 (6-20) Glucose Level 112mg/dL (70-99) 116mg/dL (70-99) Calcium Level 9.9mg/dL (8.5-10.1) 8.9mg/dL (8.5-10.1) Total Bilirubin 0.6mg/dL (0.2-1.0) Aspartate Amino Transf (AST/SGOT) 28U/L (15-37) Alanine Aminotransferase (ALT/SGPT) 36U/L (14-59) Alkaline Phosphatase 91U/L (46-116) Total Protein 7.8g/dL (6.4-8.2) Albumin 4.2g/dL (3.4-5.0) Albumin/Globulin Ratio 1.2 (1.0-1.7) Lipase 159U/L (73-393) Magnesium Level 2.0mg/dL (1.8-2.4) Medications Current Medications Ondansetron HCl (Zofran) 4 mg STK-MED ONCE .ROUTE ; Start 10/16/16 at 17:37; Stop 10/16/16 at 17:38; Status DC Ondansetron HCl (Zofran) 4 mg 1X ONCE IV Last administered on 10/16/16 17:46 ; Start 10/16/16 at 18:00; Stop 10/16/16 at 18:01; Status DC Fentanyl Citrate 50 mcg 50 mcg PRN Q15MIN PRN IV PAIN GREATER THAN 3/10 Last administered on 10/16/16 18:26; Start 10/16/16 at 18:30; Stop 10/16/16 at 20:25 ; Status DC Sodium Chloride (Iv Sodium Chloride 0.9% 1000ml Bag) 1,000 ml @ 1,000 mls/hr Q1H IV Last administered on 10/16/16 18:08; Start 10/16/16 at 18:00; Stop 06/24 at 18:59; Status DC Fentanyl Citrate (Fentanyl 2ml Vial) 100 mcg 1X ONCE IV Last administered on 18:08; Start 10/16/16 at 18:15; Stop 10/16/16 at 18:16; Status DC Fentanyl Citrate 100 mcg 100 mcg STK-MED ONCE .ROUTE ; Start 10/16/16 at 18:04; Stop 10/16/16 at 18:05; Status DC Promethazine HCl/ Sodium Chloride (Phenergan/Iv Sodium Chloride 0.9% 50ml) 50.5 ml @ 101 mls/hr 1X ONCE IV Last administered on 10/16/16 18:39; Start at 19:00; Stop 10/16/16 at 19:29; Status DC Hydromorphone HCl (Dilaudid) 1 mg PRN Q15MIN PRN IV/SQ PAIN GREATER THAN 3/10 Last administered on 10/16/16 19:40; Start 10/16/16 at 18:45; Stop 10/16/16 at 20:25; Status DC Hydromorphone HCl (Dilaudid) 2 mg STK-MED ONCE .ROUTE ; Start 10/16/16 at 18:46 ; Stop 10/16/16 at 18:47; Status DC Benzocaine (Hurricaine One) 1 spray 1X ONCE MM Last administered on 10/16/16 20:11; Start 10/16/16 at 20:00; Stop 10/16/16 at 20:01; Status DC Ondansetron HCl (Zofran) 4 mg PRN Q6HRS PRN IV NAUSEA/VOMITING, 1ST CHOICE Last administered on 10/17/16 11:39; Start 10/16/16 at 20:15 Morphine Sulfate 2 mg PRN Q1HR PRN IV MILD - MODERATE PAIN Last administered on 10/17/16 11:38; Start 10/16/16 at 20:15 Acetaminophen (Tylenol) 650 mg PRN Q6HRS PRN PO Headaches, Temp > 101.5F; Start 10/16/16 at 20:15 Heparin Sodium (Porcine) 5,000 unit Q8HRS SQ ; Start 10/16/16 at 22:00; Stop 07/24 at 11:20; Status DC Fentanyl Citrate 50 mcg 50 mcg PRN Q1HR PRN IV PAIN Last administered on 00:12; Start 10/16/16 at 20:15; Stop 10/17/16 at 20:14 Sodium Chloride 1,000 ml @ 100 mls/hr Q10H IV ; Start 10/16/16 at 20:15; Stop 10/17/16 at 20:14; Status UNV Promethazine HCl/ Sodium Chloride (Phenergan/Iv Sodium Chloride 0.9% 50ml) 50.5 ml @ 151.5 mls/ hr PRN Q6HRS PRN IV NAUSEA/VOMITING, 2ND CHOICE Last administered on 10/17/16 03:38; Start 10/16/16 at 20:15 Hydromorphone HCl 2 mg 2 mg PRN Q4HRS PRN IV PAIN Last administered on 01:14; Start 10/16/16 at 20:30; Stop 10/17/16 at 01:52; Status DC Potassium Chloride/Dextrose/ Sod Cl 1,000 ml @ 100 mls/hr Q10H IV Last administered on 10/17/16 09:01; Start 10/16/16 at 21:00 Potassium Chloride (KCl Premix 10meq) 100 ml @ 100 mls/hr Q1H IV Last administered on 10/17/16 05:24; Start 10/16/16 at 21:00; Stop 10/17/16 at 00:59 ; Status DC Pantoprazole Sodium (Protonix Vial) 40 mg DAILYAC IVP Last administered on 10/17 09:00; Start 10/16/16 at 21:00 Hydromorphone HCl (Dilaudid) 2 mg PRN Q2HR PRN IV SEVERE PAIN Last administered on 10/17/16 09:00; Start 10/17/16 at 01:52 Iohexol 400 ml 400 ml 1X ONCE PO Last administered on 10/17/16 10:30; Start 10/17/16 at 10:30; Stop 10/17/16 at 10:31; Status DC Potassium Chloride 50 ml @ 50 mls/hr 1X ONCE IV ; Start 10/17/16 at 10:45; Stop 10/17/16 at 10:45; Status DC Potassium Chloride (KCl Premix 10meq) 100 ml @ 100 mls/hr Q1H IV Last administered on 10/17/16t 12:17; Start 10/17/16 at 10:45; Stop 10/17/16 at 12:44 ; Status DC Vitals/I & O Vital Sign - Last 24 Hours 10/16/16 10/16/16 10/16/16 10/16/16 17:09 18:00 18:08 18:26 Temp 97.7 97.7 Pulse 80 87 Resp 24 24 28 28 B/P 134/70 134/74 Pulse Ox 98 98 98 98 O2 Delivery Room Air Room Air Room Air 10/16/16 10/16/16 10/16/16 10/16/16 18:28 18:48 19:31 19:40 Pulse 72 71 Resp 28 16 B/P 150/68 126/78 Pulse Ox 98 98 O2 Delivery Room Air Room Air 10/16/16 10/16/16 10/16/16 10/16/16 20:02 20:31 21:01 21:14 Pulse 58 81 59 Resp 20 B/P 146/84 137/87 158/105 Pulse Ox 98 97 98 O2 Delivery Room Air Room Air Room Air Room Air 10/16/16 10/16/16 10/16/16 10/16/16 21:45 21:45 21:45 21:45 Resp 18 18 Pulse Ox 92 O2 Delivery Room Air Room Air Room Air 10/16/16 10/16/16 10/16/16 10/16/16 21:45 22:00 22:00 23:12 Temp 97.9 97.9 97.9 97.9 Pulse 75 75 Resp 18 18 18 B/P 125/76 125/76 Pulse Ox 92 92 92 O2 Delivery Room Air Room Air Room Air Room Air 10/17/16 10/17/16 10/17/16 10/17/16 00:12 00:45 01:14 01:44 Resp 20 20 20 18 Pulse Ox 92 92 O2 Delivery Room Air Room Air Room Air Room Air 10/17/16 10/17/16 10/17/16 10/17/16 03:59 04:30 05:22 05:52 Temp 97.4 97.4 Pulse 65 Resp 18 20 18 20 B/P 130/80 Pulse Ox 97 92 92 O2 Delivery Room Air Room Air Room Air 10/17/16 10/17/16 10/17/16 10/17/16 07:00 08:15 09:00 09:30 Temp 97.8 97.8 Pulse 83 Resp 18 B/P 134/84 Pulse Ox 97 O2 Delivery Room Air Room Air Room Air Room Air 10/17/16 10/17/16 11:38 12:16 O2 Delivery Room Air Room Air Intake and Output 10/16/16 10/16/16 10/17/16 15:00 23:00 07:00 Intake Total 0 ml Balance 0 ml JERRY MORFIN MD Oct 17, 2016 13:43
[2016-10-17 14:54] VITALS: BP 114/71
--- NOTE | 2016-10-18 00:26 | CONS ---
DATE OF CONSULTATION: 10/17/2016 REFERRING PHYSICIANS: Dr. Trish Vauhgn, Dr. Valentín Sidhu, and Dr. Whitney Lee. CHIEF COMPLAINT: Epigastric abdominal pain. DIAGNOSIS: Small bowel obstruction. HISTORY OF PRESENT ILLNESS: This is a 45-year-old female, who does have a history of irritable bowel syndrome, who presents with an epigastric abdominal pain extending to the bilateral upper quadrants and into her back. This began at approximately 11:30 yesterday morning and worsened to the point where she presented to the Emergency Room for evaluation. She was seen in the Emergency Room last night and was treated with NG tube decompression and pain medicine. Overnight, she has had continued problems with nausea, vomiting, and severe pain which has not alleviated with IV narcotics. This morning, she has just completed her abdominal series and does report feeling somewhat better and her pain has relented. She is seen in her hospital room as well as having been in the Radiology Department. She appears to be reasonably comfortable at this time. She describes the pain as being very crampy in nature. She had bowel movement prior to surgery and has not passed any flatus. ALLERGIES: She has no known drug allergies. HOME MEDICATIONS: She has been on an antihypertensive medication for lower extremity edema. PAST MEDICAL HISTORY: Lower extremity edema, medication-controlled; von Willebrand disease, which is rated as fairly mild; and pheochromatosis. PAST SURGICAL HISTORY: She has had a previous laparoscopic cholecystectomy by Dr. Diaz, where she was treated with DDAVP without significant bleeding complications. SOCIAL HISTORY: No tobacco, no significant alcohol use. She is accompanied by her supportive fiance. FAMILY HISTORY: Noncontributory. REVIEW OF SYSTEMS: All systems reviewed and negative except for HPI. PHYSICAL EXAMINATION: GENERAL: A well-developed, obese female appearing somewhat fatigued. She is afebrile. VITAL SIGNS: Vital signs within normal limits. HEENT: Normocephalic and anicteric sclerae, atraumatic. Pupils are equal. Extraocular motions are intact. She has an NG tube in place with some bilious aspirate. NECK: Supple. CHEST: Bilateral chest excursion. ABDOMEN: Soft, nondistended. There is mild tenderness to palpation in the epigastric area. She is mildly obese. No obvious masses or hernias. LABORATORY DATA: White blood cell count is 12.5. She has some mildly low potassium and slightly elevated creatinine of 1.1. Beta-hCG is negative. Abdominopelvic CT demonstrates some dilated proximal small bowel and collapse in the mid and distal small bowel with a transition point. The appendix was normal. I reviewed her abdominal series, one that has been taken this morning; the report is still pending. She appears to have some mildly dilated epigastric loops of small bowel with minimal air-fluid level, paucity of air in the lower abdomen. There is some air in the right colon, no air in the rectum. Her CT images are reviewed. IMPRESSION AND RECOMMENDATIONS: This is a 45-year-old female with small bowel obstruction. She is currently improved. We would like to give her a short trial of nonoperative management. As such, we will order a small bowel follow-through for her this morning. Potentially, this may be diagnostic and potentially therapeutic. Based on this, we may need to consider a surgical intervention if she has recurrence of her pain. Plan was discussed with the patient and the patient's fiance, who agreed with the current plan. Thank you for allowing me to participate in the care of this pleasant patient. MERON HWANG MD DR: ANDREAS/windy JOB#: [id number] / [id number]
[2016-10-18] MEDS: MORPHINE SULFATE 2 MG/ML DISP.SYRIN. IV PRN ×2 (03:26→08:53)
[2016-10-18 06:05] LABS: BASO % 1 % (0-3); EOS % 1 % (0-3); HEMOGLOBIN 13.4 g/dL (12.0-15.5); LYMPH # 2.2 x10^3/uL (1.0-4.8); LYMPH % 24 % (24-48); MEAN CORPUSCULAR HEMOGLOBIN 32 pg (25-35); MEAN CORPUSCULAR HGB CONC 34 g/dL (31-37); MEAN CORPUSCULAR VOLUME 94 fL (79-100); MONO % 6 % (0-9); NEUT % 69 % (31-73); PLATELET COUNT 216 x10^3/uL (140-400); RED BLOOD COUNT 4.26 x10^6/uL (3.50-5.40); RED CELL DISTRIBUTION WIDTH 13.1 % (11.5-14.5); WHITE BLOOD COUNT 8.9 x10^3/uL (4.0-11.0)
[2016-10-18 06:11] LABS: CALCIUM 8.3 mg/dL (8.5-10.1); GFR 60.2
[2016-10-18 08:34] VITALS: BP 108/71
--- NOTE | 2016-10-18 08:41 | PDOC ---
PROGRESS NOTES Chief Complaint Chief Complaint Abdominal Pain History of Present Illness History of Present Illness No acute events overnight. Patient states that she is feeling slightly better. Her NGT is causing minimal discomfort. She had one episode of diarrhea this morning, she is unaware if there was blood. Vitals Vitals Vital Signs Date Time Temp Pulse Resp B/P Pulse Ox O2 Delivery O2 Flow Rate FiO2 10/18/16 08:34 99.9 66 18 108/71 96 Room Air 99.9 Physical Exam General: Alert, Oriented X3, Cooperative, No acute distress Heart: Regular rate, Normal S1, Normal S2, No murmurs Lungs: Clear Abdomen: Soft, Other (Mild tenderness to palpation, no rebound or guarding ) Extremities: No cyanosis, Normal pulses Skin: No rashes, No significant lesion Labs LABS Laboratory Tests Test 10/17/16 09:25 10/18/16 05:45 White Blood Count 13.2x10^3/uL (4.0-11.0) 8.9x10^3/uL (4.0-11.0) Red Blood Count 4.48x10^6/uL (3.50-5.40) 4.26x10^6/uL (3.50-5.40) Hemoglobin 14.2g/dL (12.0-15.5) 13.4g/dL (12.0-15.5) Hematocrit 41.5% (36.0-47.0) 40.0% (36.0-47.0) Mean Corpuscular Volume 93fL (79-100) 94fL (79-100) Mean Corpuscular Hemoglobin 32pg (25-35) 32pg (25-35) Mean Corpuscular Hemoglobin Concent 34g/dL (31-37) 34g/dL (31-37) Red Cell Distribution Width 13.0% (11.5-14.5) 13.1% (11.5-14.5) Platelet Count 226x10^3/uL (140-400) 216x10^3/uL (140-400) Neutrophils (%) (Auto) 91% (31-73) 69% (31-73) Lymphocytes (%) (Auto) 7% (24-48) 24% (24-48) Monocytes (%) (Auto) 2% (0-9) 6% (0-9) Eosinophils (%) (Auto) 0% (0-3) 1% (0-3) Basophils (%) (Auto) 1% (0-3) 1% (0-3) Neutrophils # (Auto) 12.0x10^3uL (1.8-7.7) 6.1x10^3uL (1.8-7.7) Lymphocytes # (Auto) 0.9x10^3/uL (1.0-4.8) 2.2x10^3/uL (1.0-4.8) Monocytes # (Auto) 0.3x10^3/uL (0.0-1.1) 0.5x10^3/uL (0.0-1.1) Eosinophils # (Auto) 0.0x10^3/uL (0.0-0.7) 0.1x10^3/uL (0.0-0.7) Basophils # (Auto) 0.1x10^3/uL (0.0-0.2) 0.0x10^3/uL (0.0-0.2) Sodium Level 142mmol/L (136-145) 145mmol/L (136-145) Potassium Level 3.2mmol/L (3.5-5.1) 3.0mmol/L (3.5-5.1) Chloride Level 102mmol/L (98-107) 108mmol/L (98-107) Carbon Dioxide Level 30mmol/L (21-32) 29mmol/L (21-32) Anion Gap 10 (6-14) 8 (6-14) Blood Urea Nitrogen 14mg/dL (7-20) 13mg/dL (7-20) Creatinine 0.9mg/dL (0.6-1.0) 1.0mg/dL (0.6-1.0) Estimated GFR (Cockcroft-Gault) 68.0 60.2 Glucose Level 116mg/dL (70-99) 101mg/dL (70-99) Calcium Level 8.9mg/dL (8.5-10.1) 8.3mg/dL (8.5-10.1) Magnesium Level 2.0mg/dL (1.8-2.4) Review of Systems Review of Systems Denies fever or chills. Denies chest pain or shortness of breath. Abdominal pain is improving. Assessment and Plan Assessmemt and Plan Problems Medical Problems: (1) Small bowel obstruction Status: Acute ASSESSMENT: 1. Abdominal pain with SBO 2. h/o von Willebrand dz 3. Left ankle chronic mild edema 4. Hypokalemia 5. SIRS W/O source of Infection PLAN: Replaced K+ Surgery has been consulted, recommendations appreciated Continue NPO Continue IVF Continue NGT to intermittent suction Continue to monitor daily labs Problems: Comment Review of Relevant I have reviewed the following items chris (where applicable) has been applied. Labs Laboratory Tests Test 10/16/16 17:00 10/16/16 17:15 10/17/16 09:25 10/18/16 05:45 Urine Test Negative (NEG) White Blood Count 12.5x10^3/uL (4.0-11.0) 13.2x10^3/uL (4.0-11.0) 8.9x10^3/uL (4.0-11.0) Red Blood Count 4.73x10^6/uL (3.50-5.40) 4.48x10^6/uL (3.50-5.40) 4.26x10^6/uL (3.50-5.40) Hemoglobin 15.2g/dL (12.0-15.5) 14.2g/dL (12.0-15.5) 13.4g/dL (12.0-15.5) Hematocrit 44.3% (36.0-47.0) 41.5% (36.0-47.0) 40.0% (36.0-47.0) Mean Corpuscular Volume 94fL (79-100) 93fL (79-100) 94fL (79-100) Mean Corpuscular Hemoglobin 32pg (25-35) 32pg (25-35) 32pg (25-35) Mean Corpuscular Hemoglobin Concent 34g/dL (31-37) 34g/dL (31-37) 34g/dL (31-37) Red Cell Distribution Width 13.0% (11.5-14.5) 13.0% (11.5-14.5) 13.1% (11.5-14.5) Platelet Count 230x10^3/uL (140-400) 226x10^3/uL (140-400) 216x10^3/uL (140-400) Neutrophils (%) (Auto) 86% (31-73) 91% (31-73) 69% (31-73) Lymphocytes (%) (Auto) 10% (24-48) 7% (24-48) 24% (24-48) Monocytes (%) (Auto) 3% (0-9) 2% (0-9) 6% (0-9) Eosinophils (%) (Auto) 0% (0-3) 0% (0-3) 1% (0-3) Basophils (%) (Auto) 0% (0-3) 1% (0-3) 1% (0-3) Neutrophils # (Auto) 10.7x10^3uL (1.8-7.7) 12.0x10^3uL (1.8-7.7) 6.1x10^3uL (1.8-7.7) Lymphocytes # (Auto) 1.3x10^3/uL (1.0-4.8) 0.9x10^3/uL (1.0-4.8) 2.2x10^3/uL (1.0-4.8) Monocytes # (Auto) 0.4x10^3/uL (0.0-1.1) 0.3x10^3/uL (0.0-1.1) 0.5x10^3/uL (0.0-1.1) Eosinophils # (Auto) 0.0x10^3/uL (0.0-0.7) 0.0x10^3/uL (0.0-0.7) 0.1x10^3/uL (0.0-0.7) Basophils # (Auto) 0.0x10^3/uL (0.0-0.2) 0.1x10^3/uL (0.0-0.2) 0.0x10^3/uL (0.0-0.2) Segmented Neutrophils % 84% (35-66) Lymphocytes % 14% (24-48) Monocytes % 2% (0-10) Platelet Estimate Adequate (ADEQUATE) Sodium Level 143mmol/L (136-145) 142mmol/L (136-145) 145mmol/L (136-145) Potassium Level 3.0mmol/L (3.5-5.1) 3.2mmol/L (3.5-5.1) 3.0mmol/L (3.5-5.1) Chloride Level 102mmol/L (98-107) 102mmol/L (98-107) 108mmol/L (98-107) Carbon Dioxide Level 30mmol/L (21-32) 30mmol/L (21-32) 29mmol/L (21-32) Anion Gap 11 (6-14) 10 (6-14) 8 (6-14) Blood Urea Nitrogen 16mg/dL (7-20) 14mg/dL (7-20) 13mg/dL (7-20) Creatinine 1.1mg/dL (0.6-1.0) 0.9mg/dL (0.6-1.0) 1.0mg/dL (0.6-1.0) Estimated GFR (Cockcroft-Gault) 54.0 68.0 60.2 BUN/Creatinine Ratio 15 (6-20) Glucose Level 112mg/dL (70-99) 116mg/dL (70-99) 101mg/dL (70-99) Calcium Level 9.9mg/dL (8.5-10.1) 8.9mg/dL (8.5-10.1) 8.3mg/dL (8.5-10.1) Total Bilirubin 0.6mg/dL (0.2-1.0) Aspartate Amino Transf (AST/SGOT) 28U/L (15-37) Alanine Aminotransferase (ALT/SGPT) 36U/L (14-59) Alkaline Phosphatase 91U/L (46-116) Total Protein 7.8g/dL (6.4-8.2) Albumin 4.2g/dL (3.4-5.0) Albumin/Globulin Ratio 1.2 (1.0-1.7) Lipase 159U/L (73-393) Magnesium Level 2.0mg/dL (1.8-2.4) Laboratory Tests Test 10/17/16 09:25 10/18/16 05:45 White Blood Count 13.2x10^3/uL (4.0-11.0) 8.9x10^3/uL (4.0-11.0) Red Blood Count 4.48x10^6/uL (3.50-5.40) 4.26x10^6/uL (3.50-5.40) Hemoglobin 14.2g/dL (12.0-15.5) 13.4g/dL (12.0-15.5) Hematocrit 41.5% (36.0-47.0) 40.0% (36.0-47.0) Mean Corpuscular Volume 93fL (79-100) 94fL (79-100) Mean Corpuscular Hemoglobin 32pg (25-35) 32pg (25-35) Mean Corpuscular Hemoglobin Concent 34g/dL (31-37) 34g/dL (31-37) Red Cell Distribution Width 13.0% (11.5-14.5) 13.1% (11.5-14.5) Platelet Count 226x10^3/uL (140-400) 216x10^3/uL (140-400) Neutrophils (%) (Auto) 91% (31-73) 69% (31-73) Lymphocytes (%) (Auto) 7% (24-48) 24% (24-48) Monocytes (%) (Auto) 2% (0-9) 6% (0-9) Eosinophils (%) (Auto) 0% (0-3) 1% (0-3) Basophils (%) (Auto) 1% (0-3) 1% (0-3) Neutrophils # (Auto) 12.0x10^3uL (1.8-7.7) 6.1x10^3uL (1.8-7.7) Lymphocytes # (Auto) 0.9x10^3/uL (1.0-4.8) 2.2x10^3/uL (1.0-4.8) Monocytes # (Auto) 0.3x10^3/uL (0.0-1.1) 0.5x10^3/uL (0.0-1.1) Eosinophils # (Auto) 0.0x10^3/uL (0.0-0.7) 0.1x10^3/uL (0.0-0.7) Basophils # (Auto) 0.1x10^3/uL (0.0-0.2) 0.0x10^3/uL (0.0-0.2) Sodium Level 142mmol/L (136-145) 145mmol/L (136-145) Potassium Level 3.2mmol/L (3.5-5.1) 3.0mmol/L (3.5-5.1) Chloride Level 102mmol/L (98-107) 108mmol/L (98-107) Carbon Dioxide Level 30mmol/L (21-32) 29mmol/L (21-32) Anion Gap 10 (6-14) 8 (6-14) Blood Urea Nitrogen 14mg/dL (7-20) 13mg/dL (7-20) Creatinine 0.9mg/dL (0.6-1.0) 1.0mg/dL (0.6-1.0) Estimated GFR (Cockcroft-Gault) 68.0 60.2 Glucose Level 116mg/dL (70-99) 101mg/dL (70-99) Calcium Level 8.9mg/dL (8.5-10.1) 8.3mg/dL (8.5-10.1) Magnesium Level 2.0mg/dL (1.8-2.4) Medications Current Medications Ondansetron HCl (Zofran) 4 mg STK-MED ONCE .ROUTE ; Start 10/16/16 at 17:37; Stop 10/16/16 at 17:38; Status DC Ondansetron HCl (Zofran) 4 mg 1X ONCE IV Last administered on 10/16/16 17:46 ; Start 10/16/16 at 18:00; Stop 10/16/16 at 18:01; Status DC Fentanyl Citrate 50 mcg 50 mcg PRN Q15MIN PRN IV PAIN GREATER THAN 3/10 Last administered on 10/16/16 18:26; Start 10/16/16 at 18:30; Stop 10/16/16 at 20:25 ; Status DC Sodium Chloride (Iv Sodium Chloride 0.9% 1000ml Bag) 1,000 ml @ 1,000 mls/hr Q1H IV Last administered on 10/16/16 18:08; Start 10/16/16 at 18:00; Stop 06/24 at 18:59; Status DC Fentanyl Citrate (Fentanyl 2ml Vial) 100 mcg 1X ONCE IV Last administered on 18:08; Start 10/16/16 at 18:15; Stop 10/16/16 at 18:16; Status DC Fentanyl Citrate 100 mcg 100 mcg STK-MED ONCE .ROUTE ; Start 10/16/16 at 18:04; Stop 10/16/16 at 18:05; Status DC Promethazine HCl/ Sodium Chloride (Phenergan/Iv Sodium Chloride 0.9% 50ml) 50.5 ml @ 101 mls/hr 1X ONCE IV Last administered on 10/16/16 18:39; Start at 19:00; Stop 10/16/16 at 19:29; Status DC Hydromorphone HCl (Dilaudid) 1 mg PRN Q15MIN PRN IV/SQ PAIN GREATER THAN 3/10 Last administered on 10/16/16 19:40; Start 10/16/16 at 18:45; Stop 10/16/16 at 20:25; Status DC Hydromorphone HCl (Dilaudid) 2 mg STK-MED ONCE .ROUTE ; Start 10/16/16 at 18:46 ; Stop 10/16/16 at 18:47; Status DC Benzocaine (Hurricaine One) 1 spray 1X ONCE MM Last administered on 10/16/16 20:11; Start 10/16/16 at 20:00; Stop 10/16/16 at 20:01; Status DC Ondansetron HCl (Zofran) 4 mg PRN Q6HRS PRN IV NAUSEA/VOMITING, 1ST CHOICE Last administered on 10/17/16 11:39; Start 10/16/16 at 20:15 Morphine Sulfate 2 mg PRN Q1HR PRN IV MILD - MODERATE PAIN Last administered on 10/18/16 03:26; Start 10/16/16 at 20:15 Acetaminophen (Tylenol) 650 mg PRN Q6HRS PRN PO Headaches, Temp > 101.5F; Start 10/16/16 at 20:15 Heparin Sodium (Porcine) 5,000 unit Q8HRS SQ ; Start 10/16/16 at 22:00; Stop 07/24 at 11:20; Status DC Fentanyl Citrate 50 mcg 50 mcg PRN Q1HR PRN IV PAIN Last administered on 00:12; Start 10/16/16 at 20:15; Stop 10/17/16 at 20:14; Status DC Sodium Chloride 1,000 ml @ 100 mls/hr Q10H IV ; Start 10/16/16 at 20:15; Stop 10/17/16 at 20:14; Status UNV Promethazine HCl/ Sodium Chloride (Phenergan/Iv Sodium Chloride 0.9% 50ml) 50.5 ml @ 151.5 mls/ hr PRN Q6HRS PRN IV NAUSEA/VOMITING, 2ND CHOICE Last administered on 10/17/16 03:38; Start 10/16/16 at 20:15 Hydromorphone HCl 2 mg 2 mg PRN Q4HRS PRN IV PAIN Last administered on 01:14; Start 10/16/16 at 20:30; Stop 10/17/16 at 01:52; Status DC Potassium Chloride/Dextrose/ Sod Cl 1,000 ml @ 100 mls/hr Q10H IV Last administered on 10/17/16 21:07; Start 10/16/16 at 21:00 Potassium Chloride (KCl Premix 10meq) 100 ml @ 100 mls/hr Q1H IV Last administered on 10/17/16 05:24; Start 10/16/16 at 21:00; Stop 10/17/16 at 00:59 ; Status DC Pantoprazole Sodium (Protonix Vial) 40 mg DAILYAC IVP Last administered on 10/17 09:00; Start 10/16/16 at 21:00 Hydromorphone HCl (Dilaudid) 2 mg PRN Q2HR PRN IV SEVERE PAIN Last administered on 10/17/16 16:57; Start 10/17/16 at 01:52 Iohexol 400 ml 400 ml 1X ONCE PO Last administered on 10/17/16 10:30; Start 10/17/16 at 10:30; Stop 10/17/16 at 10:31; Status DC Potassium Chloride 50 ml @ 50 mls/hr 1X ONCE IV ; Start 10/17/16 at 10:45; Stop 10/17/16 at 10:45; Status DC Potassium Chloride (KCl Premix 10meq) 100 ml @ 100 mls/hr Q1H IV Last administered on 10/17/16t 13:45; Start 10/17/16 at 10:45; Stop 10/17/16 at 12:44 ; Status DC Vitals/I & O Vital Sign - Last 24 Hours 10/17/16 10/17/16 10/17/16 10/17/16 09:00 11:38 14:54 16:57 Temp 98.2 98.2 Pulse 79 Resp 18 B/P 114/71 Pulse Ox 95 O2 Delivery Room Air Room Air Room Air Room Air 10/17/16 10/17/16 10/17/16 10/18/16 18:12 20:00 21:07 03:26 Resp 20 20 Pulse Ox 95 95 O2 Delivery Room Air Room Air Room Air Room Air 10/18/16 10/18/16 03:56 08:34 Temp 99.9 99.9 Pulse 66 Resp 20 18 B/P 108/71 Pulse Ox 95 96 O2 Delivery Room Air Room Air Intake and Output 10/17/16 10/17/16 10/18/16 15:00 23:00 07:00 Intake Total 0 ml Output Total 500 ml 400 ml Balance -500 ml -400 ml KIMBERLEY ARTHUR III DO Oct 18, 2016 08:41
[2016-10-18] MEDS: POTASSIUM CL 20MEQ D5-0.9%NACL 1,000 ML IV SCH ×3 (08:53→17:16)
[2016-10-18] MEDS: PANTOPRAZOLE IV PUSH 40 MG VIAL. IVP SCH (08:53)
[2016-10-18] MEDS ORDERED: POTASSIUM CHLORIDE 20MEQ 50 ML IV SCH (11:00)
[2016-10-18 11:02] VITALS: BP 120/62
--- NOTE | 2016-10-18 11:51 | PDOC ---
Provider Note Provider Note No abd pain. does not feel bloated. +diarrhea last night. afeb vss abd soft nd nt sbft normal with 30 min transit time a/p sbo, resolved per sbft. dr. barbosa's note reviewed--will clamp ng and check residual. if tolerates, then dc ng and start clears. CODY LATIF MD Oct 18, 2016 11:51
[2016-10-18] MEDS: POTASSIUM CHLORIDE 10MEQ 100 ML IV SCH ×4 (11:55→15:23)
[2016-10-18 14:57] VITALS: BP 118/65
[2016-10-18 19:00] VITALS: BP 109/62
[2016-10-18 23:00] VITALS: BP 103/57
[2016-10-19 03:00] VITALS: BP 99/61
[2016-10-19] MEDS: POTASSIUM CL 20MEQ D5-0.9%NACL 1,000 ML IV SCH ×3 (03:00→16:07)
[2016-10-19 04:46] LABS: BASO % 0 % (0-3); EOS % 2 % (0-3); HEMATOCRIT 35.7 % (36.0-47.0); HEMOGLOBIN 12.2 g/dL (12.0-15.5); LYMPH # 2.1 x10^3/uL (1.0-4.8); LYMPH % 31 % (24-48); MEAN CORPUSCULAR HEMOGLOBIN 32 pg (25-35); MEAN CORPUSCULAR HGB CONC 34 g/dL (31-37); MEAN CORPUSCULAR VOLUME 94 fL (79-100); MONO % 6 % (0-9); NEUT % 61 % (31-73); PLATELET COUNT 182 x10^3/uL (140-400); RED BLOOD COUNT 3.81 x10^6/uL (3.50-5.40); RED CELL DISTRIBUTION WIDTH 12.7 % (11.5-14.5); WHITE BLOOD COUNT 6.8 x10^3/uL (4.0-11.0)
[2016-10-19 04:49] LABS: CALCIUM 7.9 mg/dL (8.5-10.1); CREATININE 0.8 mg/dL (0.6-1.0); GFR 77.9
[2016-10-19 05:25] LABS: POTASSIUM 2.8 mmol/L (3.5-5.1)
[2016-10-19] MEDS ORDERED: POTASSIUM CHLORIDE 20 MEQ TABLET.ER. PO ONE (06:00)
[2016-10-19 07:00] VITALS: BP 99/54
[2016-10-19] MEDS: PANTOPRAZOLE IV PUSH 40 MG VIAL. IVP SCH (08:08)
[2016-10-19 11:00] VITALS: BP 99/53
[2016-10-19] MEDS: ONDANSETRON PF 4 MG/2 ML VIAL. IV PRN (11:05)
--- NOTE | 2016-10-19 12:02 | PDOC ---
PROGRESS NOTES Chief Complaint Chief Complaint Abdominal Pain History of Present Illness History of Present Illness No acute events overnight. Patient continues to improve. She continues to pass flatus. NGT was removed yesterday afternoon, she had mild nausea this morning that resolved without vomiting. Surgery believes her bowel obstruction has resolved. She denies any abdominal pain and is ambulating without issue. Vitals Vitals Vital Signs Date Time Temp Pulse Resp B/P Pulse Ox O2 Delivery O2 Flow Rate FiO2 10/19/16 11:00 97.7 60 20 99/53 99 Room Air 97.7 Physical Exam General: Alert, Oriented X3, Cooperative, No acute distress Heart: Regular rate, Normal S1, Normal S2 Lungs: Clear, Other (no wheezing) Abdomen: Soft, No tenderness, Other (Non-distended, no rebound, no guarding) Extremities: No cyanosis, No edema Skin: No rashes, No significant lesion Labs LABS Laboratory Tests Test 10/19/16 03:30 White Blood Count 6.8x10^3/uL (4.0-11.0) Red Blood Count 3.81x10^6/uL (3.50-5.40) Hemoglobin 12.2g/dL (12.0-15.5) Hematocrit 35.7% (36.0-47.0) Mean Corpuscular Volume 94fL (79-100) Mean Corpuscular Hemoglobin 32pg (25-35) Mean Corpuscular Hemoglobin Concent 34g/dL (31-37) Red Cell Distribution Width 12.7% (11.5-14.5) Platelet Count 182x10^3/uL (140-400) Neutrophils (%) (Auto) 61% (31-73) Lymphocytes (%) (Auto) 31% (24-48) Monocytes (%) (Auto) 6% (0-9) Eosinophils (%) (Auto) 2% (0-3) Basophils (%) (Auto) 0% (0-3) Neutrophils # (Auto) 4.2x10^3uL (1.8-7.7) Lymphocytes # (Auto) 2.1x10^3/uL (1.0-4.8) Monocytes # (Auto) 0.4x10^3/uL (0.0-1.1) Eosinophils # (Auto) 0.1x10^3/uL (0.0-0.7) Basophils # (Auto) 0.0x10^3/uL (0.0-0.2) Sodium Level 142mmol/L (136-145) Potassium Level 2.8mmol/L (3.5-5.1) Chloride Level 107mmol/L (98-107) Carbon Dioxide Level 27mmol/L (21-32) Anion Gap 8 (6-14) Blood Urea Nitrogen 10mg/dL (7-20) Creatinine 0.8mg/dL (0.6-1.0) Estimated GFR (Cockcroft-Gault) 77.9 Glucose Level 91mg/dL (70-99) Calcium Level 7.9mg/dL (8.5-10.1) Review of Systems Review of Systems Denies chest pain and shortness of breath. Denies fever or chills. Denies abdominal pain. Mild nausea that resolved. Assessment and Plan Assessmemt and Plan Problems Medical Problems: (1) Small bowel obstruction Status: Acute ASSESSMENT: 1. Abdominal pain with SBO - resolved 2. h/o von Willebrand dz 3. Left ankle chronic mild edema 4. Hypokalemia 5. SIRS W/O source of Infection PLAN: Potassium was not replaced yesterday, patient received K+ replacement this AM Surgery is following, recommendations appreciated Clear diet, advance as tolerated Continue to monitor daily labs Recheck K+ in AM Possible discharge later this evening or tomorrow AM Problems: Comment Review of Relevant I have reviewed the following items chris (where applicable) has been applied. Labs Laboratory Tests Test 10/18/16 05:45 10/19/16 03:30 White Blood Count 8.9x10^3/uL (4.0-11.0) 6.8x10^3/uL (4.0-11.0) Red Blood Count 4.26x10^6/uL (3.50-5.40) 3.81x10^6/uL (3.50-5.40) Hemoglobin 13.4g/dL (12.0-15.5) 12.2g/dL (12.0-15.5) Hematocrit 40.0% (36.0-47.0) 35.7% (36.0-47.0) Mean Corpuscular Volume 94fL (79-100) 94fL (79-100) Mean Corpuscular Hemoglobin 32pg (25-35) 32pg (25-35) Mean Corpuscular Hemoglobin Concent 34g/dL (31-37) 34g/dL (31-37) Red Cell Distribution Width 13.1% (11.5-14.5) 12.7% (11.5-14.5) Platelet Count 216x10^3/uL (140-400) 182x10^3/uL (140-400) Neutrophils (%) (Auto) 69% (31-73) 61% (31-73) Lymphocytes (%) (Auto) 24% (24-48) 31% (24-48) Monocytes (%) (Auto) 6% (0-9) 6% (0-9) Eosinophils (%) (Auto) 1% (0-3) 2% (0-3) Basophils (%) (Auto) 1% (0-3) 0% (0-3) Neutrophils # (Auto) 6.1x10^3uL (1.8-7.7) 4.2x10^3uL (1.8-7.7) Lymphocytes # (Auto) 2.2x10^3/uL (1.0-4.8) 2.1x10^3/uL (1.0-4.8) Monocytes # (Auto) 0.5x10^3/uL (0.0-1.1) 0.4x10^3/uL (0.0-1.1) Eosinophils # (Auto) 0.1x10^3/uL (0.0-0.7) 0.1x10^3/uL (0.0-0.7) Basophils # (Auto) 0.0x10^3/uL (0.0-0.2) 0.0x10^3/uL (0.0-0.2) Sodium Level 145mmol/L (136-145) 142mmol/L (136-145) Potassium Level 3.0mmol/L (3.5-5.1) 2.8mmol/L (3.5-5.1) Chloride Level 108mmol/L (98-107) 107mmol/L (98-107) Carbon Dioxide Level 29mmol/L (21-32) 27mmol/L (21-32) Anion Gap 8 (6-14) 8 (6-14) Blood Urea Nitrogen 13mg/dL (7-20) 10mg/dL (7-20) Creatinine 1.0mg/dL (0.6-1.0) 0.8mg/dL (0.6-1.0) Estimated GFR (Cockcroft-Gault) 60.2 77.9 Glucose Level 101mg/dL (70-99) 91mg/dL (70-99) Calcium Level 8.3mg/dL (8.5-10.1) 7.9mg/dL (8.5-10.1) Laboratory Tests Test 10/19/16 03:30 White Blood Count 6.8x10^3/uL (4.0-11.0) Red Blood Count 3.81x10^6/uL (3.50-5.40) Hemoglobin 12.2g/dL (12.0-15.5) Hematocrit 35.7% (36.0-47.0) Mean Corpuscular Volume 94fL (79-100) Mean Corpuscular Hemoglobin 32pg (25-35) Mean Corpuscular Hemoglobin Concent 34g/dL (31-37) Red Cell Distribution Width 12.7% (11.5-14.5) Platelet Count 182x10^3/uL (140-400) Neutrophils (%) (Auto) 61% (31-73) Lymphocytes (%) (Auto) 31% (24-48) Monocytes (%) (Auto) 6% (0-9) Eosinophils (%) (Auto) 2% (0-3) Basophils (%) (Auto) 0% (0-3) Neutrophils # (Auto) 4.2x10^3uL (1.8-7.7) Lymphocytes # (Auto) 2.1x10^3/uL (1.0-4.8) Monocytes # (Auto) 0.4x10^3/uL (0.0-1.1) Eosinophils # (Auto) 0.1x10^3/uL (0.0-0.7) Basophils # (Auto) 0.0x10^3/uL (0.0-0.2) Sodium Level 142mmol/L (136-145) Potassium Level 2.8mmol/L (3.5-5.1) Chloride Level 107mmol/L (98-107) Carbon Dioxide Level 27mmol/L (21-32) Anion Gap 8 (6-14) Blood Urea Nitrogen 10mg/dL (7-20) Creatinine 0.8mg/dL (0.6-1.0) Estimated GFR (Cockcroft-Gault) 77.9 Glucose Level 91mg/dL (70-99) Calcium Level 7.9mg/dL (8.5-10.1) Medications Current Medications Ondansetron HCl (Zofran) 4 mg STK-MED ONCE .ROUTE ; Start 10/16/16 at 17:37; Stop 10/16/16 at 17:38; Status DC Ondansetron HCl (Zofran) 4 mg 1X ONCE IV Last administered on 10/16/16 17:46 ; Start 10/16/16 at 18:00; Stop 10/16/16 at 18:01; Status DC Fentanyl Citrate 50 mcg 50 mcg PRN Q15MIN PRN IV PAIN GREATER THAN 3/10 Last administered on 10/16/16 18:26; Start 10/16/16 at 18:30; Stop 10/16/16 at 20:25 ; Status DC Sodium Chloride (Iv Sodium Chloride 0.9% 1000ml Bag) 1,000 ml @ 1,000 mls/hr Q1H IV Last administered on 10/16/16 18:08; Start 10/16/16 at 18:00; Stop 06/24 at 18:59; Status DC Fentanyl Citrate (Fentanyl 2ml Vial) 100 mcg 1X ONCE IV Last administered on 18:08; Start 10/16/16 at 18:15; Stop 10/16/16 at 18:16; Status DC Fentanyl Citrate 100 mcg 100 mcg STK-MED ONCE .ROUTE ; Start 10/16/16 at 18:04; Stop 10/16/16 at 18:05; Status DC Promethazine HCl/ Sodium Chloride (Phenergan/Iv Sodium Chloride 0.9% 50ml) 50.5 ml @ 101 mls/hr 1X ONCE IV Last administered on 10/16/16 18:39; Start at 19:00; Stop 10/16/16 at 19:29; Status DC Hydromorphone HCl (Dilaudid) 1 mg PRN Q15MIN PRN IV/SQ PAIN GREATER THAN 3/10 Last administered on 10/16/16 19:40; Start 10/16/16 at 18:45; Stop 10/16/16 at 20:25; Status DC Hydromorphone HCl (Dilaudid) 2 mg STK-MED ONCE .ROUTE ; Start 10/16/16 at 18:46 ; Stop 10/16/16 at 18:47; Status DC Benzocaine (Hurricaine One) 1 spray 1X ONCE MM Last administered on 10/16/16 20:11; Start 10/16/16 at 20:00; Stop 10/16/16 at 20:01; Status DC Ondansetron HCl (Zofran) 4 mg PRN Q6HRS PRN IV NAUSEA/VOMITING, 1ST CHOICE Last administered on 10/17/16 11:39; Start 10/16/16 at 20:15 Morphine Sulfate 2 mg PRN Q1HR PRN IV MILD - MODERATE PAIN Last administered on 10/18/16 08:53; Start 10/16/16 at 20:15 Acetaminophen (Tylenol) 650 mg PRN Q6HRS PRN PO Headaches, Temp > 101.5F Last administered on 10/19/16 08:08; Start 10/16/16 at 20:15 Heparin Sodium (Porcine) 5,000 unit Q8HRS SQ ; Start 10/16/16 at 22:00; Stop 07/24 at 11:20; Status DC Fentanyl Citrate 50 mcg 50 mcg PRN Q1HR PRN IV PAIN Last administered on 00:12; Start 10/16/16 at 20:15; Stop 10/17/16 at 20:14; Status DC Sodium Chloride 1,000 ml @ 100 mls/hr Q10H IV ; Start 10/16/16 at 20:15; Stop 10/17/16 at 20:14; Status UNV Promethazine HCl/ Sodium Chloride (Phenergan/Iv Sodium Chloride 0.9% 50ml) 50.5 ml @ 151.5 mls/ hr PRN Q6HRS PRN IV NAUSEA/VOMITING, 2ND CHOICE Last administered on 10/17/16 03:38; Start 10/16/16 at 20:15 Hydromorphone HCl 2 mg 2 mg PRN Q4HRS PRN IV PAIN Last administered on 01:14; Start 10/16/16 at 20:30; Stop 10/17/16 at 01:52; Status DC Potassium Chloride/Dextrose/ Sod Cl 1,000 ml @ 100 mls/hr Q10H IV Last administered on 10/19/16 03:00; Start 10/16/16 at 21:00 Potassium Chloride (KCl Premix 10meq) 100 ml @ 100 mls/hr Q1H IV Last administered on 10/17/16 05:24; Start 10/16/16 at 21:00; Stop 10/17/16 at 00:59 ; Status DC Pantoprazole Sodium (Protonix Vial) 40 mg DAILYAC IVP Last administered on 10/19 08:08; Start 10/16/16 at 21:00 Hydromorphone HCl (Dilaudid) 2 mg PRN Q2HR PRN IV SEVERE PAIN Last administered on 10/17/16 16:57; Start 10/17/16 at 01:52 Iohexol 400 ml 400 ml 1X ONCE PO Last administered on 10/17/16 10:30; Start 10/17/16 at 10:30; Stop 10/17/16 at 10:31; Status DC Potassium Chloride 50 ml @ 50 mls/hr 1X ONCE IV ; Start 10/17/16 at 10:45; Stop 10/17/16 at 10:45; Status DC Potassium Chloride 100 ml @ 100 mls/hr Q1H IV Last administered on 10/17/16 13:45; Start 10/17/16 at 10:45; Stop 10/17/16 at 12:44; Status DC Potassium Chloride 50 ml @ 50 mls/hr Q1H IV ; Start 10/18/16 at 11:00; Stop at 11:00; Status DC Potassium Chloride (KCl Premix 10meq) 100 ml @ 100 mls/hr Q1H IV Last administered on 10/18/16 15:23; Start 10/18/16 at 11:00; Stop 10/18/16 at 14:59 ; Status DC Potassium Chloride (Klor-Con) 40 meq 1X ONCE PO Last administered on 06:01; Start 10/19/16 at 06:00; Stop 10/19/16 at 06:01; Status DC Vitals/I & O Vital Sign - Last 24 Hours 10/18/16 10/18/16 10/18/16 10/19/16 14:57 19:00 23:00 03:00 Temp 98.1 98.6 98.4 98.4 98.1 98.6 98.4 98.4 Pulse 68 69 63 61 Resp 18 18 16 16 B/P 118/65 109/62 103/57 99/61 Pulse Ox 97 97 96 96 O2 Delivery Room Air 10/19/16 10/19/16 10/19/16 07:00 08:00 11:00 Temp 98.1 97.7 98.1 97.7 Pulse 67 60 Resp 20 20 B/P 99/54 99/53 Pulse Ox 97 99 O2 Delivery Room Air Room Air Room Air Intake and Output 10/18/16 10/18/16 10/19/16 15:00 23:00 07:00 Intake Total 480 ml 0 ml Output Total 250 ml Balance 230 ml 0 ml KIMBERLEY ARTHUR III DO Oct 19, 2016 12:02
--- NOTE | 2016-10-19 13:19 | PDOC ---
SURGICAL PROGRESS NOTE Subjective no emesis, some nausea earlier AM 2 loose stools yesterday no distention Vital Signs Vital Signs Date Time Temp Pulse Resp B/P Pulse Ox O2 Delivery O2 Flow Rate FiO2 10/19/16 11:00 97.7 60 20 99/53 99 Room Air 97.7 I&O Intake and Output 10/19/16 07:00 Intake Total 480 ml Output Total 250 ml Balance 230 ml Intake Oral 480 ml Output Gastric Drainage Total 250 ml # Voids 6 # Bowel Movements 2 General: Alert, Oriented X3, Cooperative, No acute distress Abdomen: Soft, No tenderness Labs Laboratory Tests Test 10/18/16 05:45 10/19/16 03:30 White Blood Count 8.9x10^3/uL (4.0-11.0) 6.8x10^3/uL (4.0-11.0) Red Blood Count 4.26x10^6/uL (3.50-5.40) 3.81x10^6/uL (3.50-5.40) Hemoglobin 13.4g/dL (12.0-15.5) 12.2g/dL (12.0-15.5) Hematocrit 40.0% (36.0-47.0) 35.7% (36.0-47.0) Mean Corpuscular Volume 94fL (79-100) 94fL (79-100) Mean Corpuscular Hemoglobin 32pg (25-35) 32pg (25-35) Mean Corpuscular Hemoglobin Concent 34g/dL (31-37) 34g/dL (31-37) Red Cell Distribution Width 13.1% (11.5-14.5) 12.7% (11.5-14.5) Platelet Count 216x10^3/uL (140-400) 182x10^3/uL (140-400) Neutrophils (%) (Auto) 69% (31-73) 61% (31-73) Lymphocytes (%) (Auto) 24% (24-48) 31% (24-48) Monocytes (%) (Auto) 6% (0-9) 6% (0-9) Eosinophils (%) (Auto) 1% (0-3) 2% (0-3) Basophils (%) (Auto) 1% (0-3) 0% (0-3) Neutrophils # (Auto) 6.1x10^3uL (1.8-7.7) 4.2x10^3uL (1.8-7.7) Lymphocytes # (Auto) 2.2x10^3/uL (1.0-4.8) 2.1x10^3/uL (1.0-4.8) Monocytes # (Auto) 0.5x10^3/uL (0.0-1.1) 0.4x10^3/uL (0.0-1.1) Eosinophils # (Auto) 0.1x10^3/uL (0.0-0.7) 0.1x10^3/uL (0.0-0.7) Basophils # (Auto) 0.0x10^3/uL (0.0-0.2) 0.0x10^3/uL (0.0-0.2) Sodium Level 145mmol/L (136-145) 142mmol/L (136-145) Potassium Level 3.0mmol/L (3.5-5.1) 2.8mmol/L (3.5-5.1) Chloride Level 108mmol/L (98-107) 107mmol/L (98-107) Carbon Dioxide Level 29mmol/L (21-32) 27mmol/L (21-32) Anion Gap 8 (6-14) 8 (6-14) Blood Urea Nitrogen 13mg/dL (7-20) 10mg/dL (7-20) Creatinine 1.0mg/dL (0.6-1.0) 0.8mg/dL (0.6-1.0) Estimated GFR (Cockcroft-Gault) 60.2 77.9 Glucose Level 101mg/dL (70-99) 91mg/dL (70-99) Calcium Level 8.3mg/dL (8.5-10.1) 7.9mg/dL (8.5-10.1) Laboratory Tests Test 10/19/16 03:30 White Blood Count 6.8x10^3/uL (4.0-11.0) Red Blood Count 3.81x10^6/uL (3.50-5.40) Hemoglobin 12.2g/dL (12.0-15.5) Hematocrit 35.7% (36.0-47.0) Mean Corpuscular Volume 94fL (79-100) Mean Corpuscular Hemoglobin 32pg (25-35) Mean Corpuscular Hemoglobin Concent 34g/dL (31-37) Red Cell Distribution Width 12.7% (11.5-14.5) Platelet Count 182x10^3/uL (140-400) Neutrophils (%) (Auto) 61% (31-73) Lymphocytes (%) (Auto) 31% (24-48) Monocytes (%) (Auto) 6% (0-9) Eosinophils (%) (Auto) 2% (0-3) Basophils (%) (Auto) 0% (0-3) Neutrophils # (Auto) 4.2x10^3uL (1.8-7.7) Lymphocytes # (Auto) 2.1x10^3/uL (1.0-4.8) Monocytes # (Auto) 0.4x10^3/uL (0.0-1.1) Eosinophils # (Auto) 0.1x10^3/uL (0.0-0.7) Basophils # (Auto) 0.0x10^3/uL (0.0-0.2) Sodium Level 142mmol/L (136-145) Potassium Level 2.8mmol/L (3.5-5.1) Chloride Level 107mmol/L (98-107) Carbon Dioxide Level 27mmol/L (21-32) Anion Gap 8 (6-14) Blood Urea Nitrogen 10mg/dL (7-20) Creatinine 0.8mg/dL (0.6-1.0) Estimated GFR (Cockcroft-Gault) 77.9 Glucose Level 91mg/dL (70-99) Calcium Level 7.9mg/dL (8.5-10.1) Problem List Problems Medical Problems: (1) Small bowel obstruction Status: Acute Assessment/Plan advance to full liquids if tolerating likely home tomorrow Problems: FÁTIMA TITUS APRN Oct 19, 2016 13:19
[2016-10-19 14:54] VITALS: BP 105/52
[2016-10-19 19:00] VITALS: BP 115/65
[2016-10-19 22:32] VITALS: BP 107/66
[2016-10-20] MEDS: POTASSIUM CL 20MEQ D5-0.9%NACL 1,000 ML IV SCH ×2 (05:00→15:32)
[2016-10-20 07:00] VITALS: BP 105/62
[2016-10-20] MEDS: PANTOPRAZOLE IV PUSH 40 MG VIAL. IVP SCH (07:30)
[2016-10-20 07:42] LABS: BASO % 1 % (0-3); EOS % 3 % (0-3); HEMATOCRIT 36.5 % (36.0-47.0); HEMOGLOBIN 12.5 g/dL (12.0-15.5); LYMPH # 1.8 x10^3/uL (1.0-4.8); LYMPH % 28 % (24-48); MEAN CORPUSCULAR HEMOGLOBIN 32 pg (25-35); MEAN CORPUSCULAR HGB CONC 34 g/dL (31-37); MEAN CORPUSCULAR VOLUME 94 fL (79-100); MONO % 6 % (0-9); NEUT % 63 % (31-73); PLATELET COUNT 173 x10^3/uL (140-400); RED BLOOD COUNT 3.88 x10^6/uL (3.50-5.40); RED CELL DISTRIBUTION WIDTH 12.6 % (11.5-14.5); WHITE BLOOD COUNT 6.3 x10^3/uL (4.0-11.0)
[2016-10-20 07:50] LABS: CALCIUM 8.4 mg/dL (8.5-10.1); CREATININE 0.8 mg/dL (0.6-1.0); GFR 77.9; POTASSIUM 3.4 mmol/L (3.5-5.1)
[2016-10-20 10:43] VITALS: BP 104/69
--- NOTE | 2016-10-20 13:34 | PDOC ---
PROGRESS NOTES Chief Complaint Chief Complaint Abdominal Pain History of Present Illness History of Present Illness No acute events overnight. Patient continues to improve. She continues to pass flatus, and has had bowel movements. She continues to have mild nausea without vomiting, but feels it is improving. Pt is not overly concerned with level of nausea or slight abdominal pain. Feels that she is ready to be discharged. Vitals Vitals Vital Signs Date Time Temp Pulse Resp B/P Pulse Ox O2 Delivery O2 Flow Rate FiO2 10/20/16 10:43 98.7 75 20 104/69 99 Room Air 98.7 Physical Exam General: Alert, Oriented X3, Cooperative, No acute distress Heart: Regular rate, Normal S1, Normal S2 Lungs: Clear, Other (no wheezing) Abdomen: Soft, No tenderness Extremities: No cyanosis, No edema Skin: No rashes, No significant lesion Labs LABS Laboratory Tests Test 10/20/16 06:05 White Blood Count 6.3x10^3/uL (4.0-11.0) Red Blood Count 3.88x10^6/uL (3.50-5.40) Hemoglobin 12.5g/dL (12.0-15.5) Hematocrit 36.5% (36.0-47.0) Mean Corpuscular Volume 94fL (79-100) Mean Corpuscular Hemoglobin 32pg (25-35) Mean Corpuscular Hemoglobin Concent 34g/dL (31-37) Red Cell Distribution Width 12.6% (11.5-14.5) Platelet Count 173x10^3/uL (140-400) Neutrophils (%) (Auto) 63% (31-73) Lymphocytes (%) (Auto) 28% (24-48) Monocytes (%) (Auto) 6% (0-9) Eosinophils (%) (Auto) 3% (0-3) Basophils (%) (Auto) 1% (0-3) Neutrophils # (Auto) 3.9x10^3uL (1.8-7.7) Lymphocytes # (Auto) 1.8x10^3/uL (1.0-4.8) Monocytes # (Auto) 0.4x10^3/uL (0.0-1.1) Eosinophils # (Auto) 0.2x10^3/uL (0.0-0.7) Basophils # (Auto) 0.0x10^3/uL (0.0-0.2) Sodium Level 143mmol/L (136-145) Potassium Level 3.4mmol/L (3.5-5.1) Chloride Level 109mmol/L (98-107) Carbon Dioxide Level 29mmol/L (21-32) Anion Gap 5 (6-14) Blood Urea Nitrogen 7mg/dL (7-20) Creatinine 0.8mg/dL (0.6-1.0) Estimated GFR (Cockcroft-Gault) 77.9 Glucose Level 81mg/dL (70-99) Calcium Level 8.4mg/dL (8.5-10.1) Review of Systems Review of Systems denies fever, chills + mild nausea, improving denies vomiting + mild abdominal pain, improving Assessment and Plan Assessmemt and Plan ASSESSMENT: 1. Abdominal pain with SBO - resolved 2. h/o von Willebrand dz 3. Left ankle chronic mild edema 4. Hypokalemia 5. SIRS W/O source of Infection PLAN: - discharge if cleared by subspecialists - f/u with PCP in 1 wk - potassium has improved - has advanced diet, with only mild nausea - appreciate input from all subspecialists Problems: Comment Review of Relevant I have reviewed the following items chris (where applicable) has been applied. Labs Laboratory Tests Test 10/19/16 03:30 10/20/16 06:05 White Blood Count 6.8x10^3/uL (4.0-11.0) 6.3x10^3/uL (4.0-11.0) Red Blood Count 3.81x10^6/uL (3.50-5.40) 3.88x10^6/uL (3.50-5.40) Hemoglobin 12.2g/dL (12.0-15.5) 12.5g/dL (12.0-15.5) Hematocrit 35.7% (36.0-47.0) 36.5% (36.0-47.0) Mean Corpuscular Volume 94fL (79-100) 94fL (79-100) Mean Corpuscular Hemoglobin 32pg (25-35) 32pg (25-35) Mean Corpuscular Hemoglobin Concent 34g/dL (31-37) 34g/dL (31-37) Red Cell Distribution Width 12.7% (11.5-14.5) 12.6% (11.5-14.5) Platelet Count 182x10^3/uL (140-400) 173x10^3/uL (140-400) Neutrophils (%) (Auto) 61% (31-73) 63% (31-73) Lymphocytes (%) (Auto) 31% (24-48) 28% (24-48) Monocytes (%) (Auto) 6% (0-9) 6% (0-9) Eosinophils (%) (Auto) 2% (0-3) 3% (0-3) Basophils (%) (Auto) 0% (0-3) 1% (0-3) Neutrophils # (Auto) 4.2x10^3uL (1.8-7.7) 3.9x10^3uL (1.8-7.7) Lymphocytes # (Auto) 2.1x10^3/uL (1.0-4.8) 1.8x10^3/uL (1.0-4.8) Monocytes # (Auto) 0.4x10^3/uL (0.0-1.1) 0.4x10^3/uL (0.0-1.1) Eosinophils # (Auto) 0.1x10^3/uL (0.0-0.7) 0.2x10^3/uL (0.0-0.7) Basophils # (Auto) 0.0x10^3/uL (0.0-0.2) 0.0x10^3/uL (0.0-0.2) Sodium Level 142mmol/L (136-145) 143mmol/L (136-145) Potassium Level 2.8mmol/L (3.5-5.1) 3.4mmol/L (3.5-5.1) Chloride Level 107mmol/L (98-107) 109mmol/L (98-107) Carbon Dioxide Level 27mmol/L (21-32) 29mmol/L (21-32) Anion Gap 8 (6-14) 5 (6-14) Blood Urea Nitrogen 10mg/dL (7-20) 7mg/dL (7-20) Creatinine 0.8mg/dL (0.6-1.0) 0.8mg/dL (0.6-1.0) Estimated GFR (Cockcroft-Gault) 77.9 77.9 Glucose Level 91mg/dL (70-99) 81mg/dL (70-99) Calcium Level 7.9mg/dL (8.5-10.1) 8.4mg/dL (8.5-10.1) Laboratory Tests Test 10/20/16 06:05 White Blood Count 6.3x10^3/uL (4.0-11.0) Red Blood Count 3.88x10^6/uL (3.50-5.40) Hemoglobin 12.5g/dL (12.0-15.5) Hematocrit 36.5% (36.0-47.0) Mean Corpuscular Volume 94fL (79-100) Mean Corpuscular Hemoglobin 32pg (25-35) Mean Corpuscular Hemoglobin Concent 34g/dL (31-37) Red Cell Distribution Width 12.6% (11.5-14.5) Platelet Count 173x10^3/uL (140-400) Neutrophils (%) (Auto) 63% (31-73) Lymphocytes (%) (Auto) 28% (24-48) Monocytes (%) (Auto) 6% (0-9) Eosinophils (%) (Auto) 3% (0-3) Basophils (%) (Auto) 1% (0-3) Neutrophils # (Auto) 3.9x10^3uL (1.8-7.7) Lymphocytes # (Auto) 1.8x10^3/uL (1.0-4.8) Monocytes # (Auto) 0.4x10^3/uL (0.0-1.1) Eosinophils # (Auto) 0.2x10^3/uL (0.0-0.7) Basophils # (Auto) 0.0x10^3/uL (0.0-0.2) Sodium Level 143mmol/L (136-145) Potassium Level 3.4mmol/L (3.5-5.1) Chloride Level 109mmol/L (98-107) Carbon Dioxide Level 29mmol/L (21-32) Anion Gap 5 (6-14) Blood Urea Nitrogen 7mg/dL (7-20) Creatinine 0.8mg/dL (0.6-1.0) Estimated GFR (Cockcroft-Gault) 77.9 Glucose Level 81mg/dL (70-99) Calcium Level 8.4mg/dL (8.5-10.1) Medications Current Medications Ondansetron HCl (Zofran) 4 mg STK-MED ONCE .ROUTE ; Start 10/16/16 at 17:37; Stop 10/16/16 at 17:38; Status DC Ondansetron HCl (Zofran) 4 mg 1X ONCE IV Last administered on 10/16/16 17:46 ; Start 10/16/16 at 18:00; Stop 10/16/16 at 18:01; Status DC Fentanyl Citrate 50 mcg 50 mcg PRN Q15MIN PRN IV PAIN GREATER THAN 3/10 Last administered on 10/16/16 18:26; Start 10/16/16 at 18:30; Stop 10/16/16 at 20:25 ; Status DC Sodium Chloride (Iv Sodium Chloride 0.9% 1000ml Bag) 1,000 ml @ 1,000 mls/hr Q1H IV Last administered on 10/16/16 18:08; Start 10/16/16 at 18:00; Stop 06/24 at 18:59; Status DC Fentanyl Citrate (Fentanyl 2ml Vial) 100 mcg 1X ONCE IV Last administered on 18:08; Start 10/16/16 at 18:15; Stop 10/16/16 at 18:16; Status DC Fentanyl Citrate 100 mcg 100 mcg STK-MED ONCE .ROUTE ; Start 10/16/16 at 18:04; Stop 10/16/16 at 18:05; Status DC Promethazine HCl/ Sodium Chloride (Phenergan/Iv Sodium Chloride 0.9% 50ml) 50.5 ml @ 101 mls/hr 1X ONCE IV Last administered on 10/16/16 18:39; Start at 19:00; Stop 10/16/16 at 19:29; Status DC Hydromorphone HCl (Dilaudid) 1 mg PRN Q15MIN PRN IV/SQ PAIN GREATER THAN 3/10 Last administered on 10/16/16 19:40; Start 10/16/16 at 18:45; Stop 10/16/16 at 20:25; Status DC Hydromorphone HCl (Dilaudid) 2 mg STK-MED ONCE .ROUTE ; Start 10/16/16 at 18:46 ; Stop 10/16/16 at 18:47; Status DC Benzocaine (Hurricaine One) 1 spray 1X ONCE MM Last administered on 10/16/16 20:11; Start 10/16/16 at 20:00; Stop 10/16/16 at 20:01; Status DC Ondansetron HCl (Zofran) 4 mg PRN Q6HRS PRN IV NAUSEA/VOMITING, 1ST CHOICE Last administered on 10/19/16 11:05; Start 10/16/16 at 20:15 Morphine Sulfate 2 mg PRN Q1HR PRN IV MILD - MODERATE PAIN Last administered on 10/18/16 08:53; Start 10/16/16 at 20:15 Acetaminophen (Tylenol) 650 mg PRN Q6HRS PRN PO Headaches, Temp > 101.5F Last administered on 10/19/16 08:08; Start 10/16/16 at 20:15 Heparin Sodium (Porcine) 5,000 unit Q8HRS SQ ; Start 10/16/16 at 22:00; Stop 07/24 at 11:20; Status DC Fentanyl Citrate 50 mcg 50 mcg PRN Q1HR PRN IV PAIN Last administered on 00:12; Start 10/16/16 at 20:15; Stop 10/17/16 at 20:14; Status DC Sodium Chloride 1,000 ml @ 100 mls/hr Q10H IV ; Start 10/16/16 at 20:15; Stop 10/17/16 at 20:14; Status UNV Promethazine HCl/ Sodium Chloride (Phenergan/Iv Sodium Chloride 0.9% 50ml) 50.5 ml @ 151.5 mls/ hr PRN Q6HRS PRN IV NAUSEA/VOMITING, 2ND CHOICE Last administered on 10/17/16 03:38; Start 10/16/16 at 20:15 Hydromorphone HCl 2 mg 2 mg PRN Q4HRS PRN IV PAIN Last administered on 01:14; Start 10/16/16 at 20:30; Stop 10/17/16 at 01:52; Status DC Potassium Chloride/Dextrose/ Sod Cl 1,000 ml @ 100 mls/hr Q10H IV Last administered on 10/19/16 16:07; Start 10/16/16 at 21:00 Potassium Chloride (KCl Premix 10meq) 100 ml @ 100 mls/hr Q1H IV Last administered on 10/17/16 05:24; Start 10/16/16 at 21:00; Stop 10/17/16 at 00:59 ; Status DC Pantoprazole Sodium (Protonix Vial) 40 mg DAILYAC IVP Last administered on 10/19 08:08; Start 10/16/16 at 21:00 Hydromorphone HCl (Dilaudid) 2 mg PRN Q2HR PRN IV SEVERE PAIN Last administered on 10/17/16 16:57; Start 10/17/16 at 01:52 Iohexol 400 ml 400 ml 1X ONCE PO Last administered on 10/17/16 10:30; Start 10/17/16 at 10:30; Stop 10/17/16 at 10:31; Status DC Potassium Chloride 50 ml @ 50 mls/hr 1X ONCE IV ; Start 10/17/16 at 10:45; Stop 10/17/16 at 10:45; Status DC Potassium Chloride 100 ml @ 100 mls/hr Q1H IV Last administered on 10/17/16 13:45; Start 10/17/16 at 10:45; Stop 10/17/16 at 12:44; Status DC Potassium Chloride 50 ml @ 50 mls/hr Q1H IV ; Start 10/18/16 at 11:00; Stop at 11:00; Status DC Potassium Chloride (KCl Premix 10meq) 100 ml @ 100 mls/hr Q1H IV Last administered on 10/18/16 15:23; Start 10/18/16 at 11:00; Stop 10/18/16 at 14:59 ; Status DC Potassium Chloride (Klor-Con) 40 meq 1X ONCE PO Last administered on 06:01; Start 10/19/16 at 06:00; Stop 10/19/16 at 06:01; Status DC Vitals/I & O Vital Sign - Last 24 Hours 3/14/10/19/16 10/19/16 10/19/16 14:54 19:00 20:00 22:32 Temp 97.7 97.9 98.3 97.7 97.9 98.3 Pulse 64 55 53 Resp 20 18 18 B/P 105/52 115/65 107/66 Pulse Ox 98 97 97 O2 Delivery Room Air Room Air Room Air Room Air 10/20/16 10/20/16 10/20/16 07:00 08:00 10:43 Temp 98.6 98.7 98.6 98.7 Pulse 85 75 Resp 20 20 B/P 105/62 104/69 Pulse Ox 95 99 O2 Delivery Room Air Room Air Room Air Intake and Output 10/19/16 10/19/16 10/20/16 15:00 23:00 07:00 Intake Total 600 ml 840 ml 1100 ml Balance 600 ml 840 ml 1100 ml KIMBERLEY ARTHUR III DO Oct 20, 2016 13:34
[2016-10-20 14:43] VITALS: BP 109/63
== END 2016-10-20 16:00 | disposition home or self-care (01) | DRG 389 ==
LOC: ER 16:37 → 5 SOUTH 19:50
PROVIDERS: ADMIT Internal Medicine; ATTEND Internal Medicine
DX: K56.60 Unspecified intestinal obstruction (principal); R65.10 Systemic inflammatory response syndrome (SIRS) of non-infectious origin without acute organ dysfunction; D68.0 Von Willebrand disease; E87.6 Hypokalemia; K58.9 Irritable bowel syndrome, unspecified; R60.9 Edema, unspecified; E66.9 Obesity, unspecified; Z68.33 Body mass index [BMI] 33.0-33.9, adult; Z90.49 Acquired absence of other specified parts of digestive tract
CPT/HCPCS: 36415; 74022; 74176; 74250; 80048; 80053; 81025; 83690; 83735; 85007; 85027; 96374; 96375; 96376; C9113; J1170; J2270; J2405; J2550; J3010; J3480; J7030; Q9967; 99285-25